=== PATIENT | female | born 1950 | race Caucasian/White ===

== ENCOUNTER → 2017-11-27 13:36 | Outpatient (CLI) | payer MEDICARE, OTHER, SELFPAY ==
--- NOTE | 2017-11-27 | DI.NM.S_ITS ---
PROCEDURE: NM HIDA WITH CCK PHARMACEUTICAL: 5.0 mCi Tc-99m mebrofenin IV; 1.2 mcg CCK IV. INDICATIONS: Right upper quadrant pain TECHNIQUE: Following intravenous administration of Tc-99m mebrofenin, sequential anterior abdominal images were obtained. To evaluate the contractile response of the gallbladder in response to Cholecystokinin (CCK), sincalide (0.02 ?g/kg) was administered by slow intravenous infusion approximately 60 minutes after the administration of the radiopharmaceutical. Sequential imaging was continued for 30 minutes after the start of CCK infusion. Gallbladder ejection fraction was calculated. COMPARISON: [facility], US, ABDOMEN COMPLETE, 11/02/2017, 14:48. [facility], CT, ANGIOGRAPHY ABDOMEN AND PELVIS, 11/02/2017, 11:08. FINDINGS: Biliary scan: There is normal tracer uptake and excretion by the liver. There is normal visualization of the intrahepatic ducts, common bile duct, and gallbladder. There is normal tracer transit into the duodenum. CCK stimulation: There is appropriate contractile response of the gallbladder to CCK infusion. The calculated gallbladder ejection fraction is 87%; normal values are above 35%. IMPRESSION: Normal hepatobiliary scan. The gallbladder ejection fraction is within normal limits. There is no cystic duct or common duct obstruction. Dictated by: Darnell Katz M.D. on 11/27/2017 at 15:04 Approved by: Darnell Katz M.D. on 11/27/2017 at 15:06
== END ==
PROVIDERS: Family Provider Nurse Practitioner Family; PCP Nurse Practitioner Family; Visit Provider Surgery
DX: R10.11 Right upper quadrant pain (principal)
CPT/HCPCS: 78227; A9537; J2805

== ENCOUNTER 2017-11-27 16:03 | Emergency (ER) | payer MEDICARE, OTHER, SELFPAY ==
[2017-11-27 16:18] VITALS: BP 148/78; PULSE 75; RESP 16; TEMP 36.9; O2SAT 100; BMI 22.1
--- NOTE | 2017-11-27 16:39 | DI.RAD.S_ITS ---
PROCEDURE: XR CHEST 1V INDICATIONS: shortness of breath TECHNIQUE: One view of the chest was acquired. COMPARISON: None. FINDINGS: Surgical changes and devices: None. Lungs and pleura: No pleural effusions or pneumothorax. Lungs are clear. Mediastinum: Mediastinal contours appear normal. Heart size is normal. Bones and chest wall: No suspicious bony lesions. Overlying soft tissues appear unremarkable. IMPRESSION: No acute cardiopulmonary process is evident. Dictated by: Darnell Katz M.D. on 11/27/2017 at 16:35 Approved by: Darnell Katz M.D. on 11/27/2017 at 16:36
[2017-11-27] MEDS: methylPREDNISolone 125 MG/2 ML VIAL IV (16:51)
[2017-11-27] MEDS: SODIUM CHLORIDE 0.9% 1,000 ML 150 ML IV (16:51)
[2017-11-27] MEDS: FAMOTIDINE 20 MG/50 ML PIGGYBACK 200 MG IV (16:51)
[2017-11-27] MEDS: diphenhydrAMINE 50 MG/ML VIAL 25 MG IV (16:52)
[2017-11-27 17:14] LABS: Add Manual Diff / Slide Review NO; Basophils Percent Auto 0.4 % (0-2); Eosinophils Percent Auto 0.3 % (2-4); Hematocrit 43.6 % (36-46); Mean Corpuscular HGB Conc 34.3 % (30-36); Mean Corpuscular Hemoglobin 30.3 PG (26-34); Mean Corpuscular Volume 88.4 fL (80-100); Monocytes Percent Auto 7.5 % (3-14); Neutrophils Absolute Auto 3000 /uL (3000-5900); Neutrophils Percent Auto 60.8 % (50-75); Platelet Count 242 X10^3/uL (150-400); Red Blood Cell Count 4.93 X10^6/uL (4.0-5.2); Red Cell Distribution Width 13.4 % (11.6-14.8)
[2017-11-27 17:16] LABS: BUN Creatinine Ratio 27.1 (6-22); Calcium 9.5 mg/dL (8.4-10.2); Estimated Glomerular Filt Rate > 60.0 mL/min (>60); Glucose 129 mg/dL (80-110); HEMOLYSIS 18 (0-50); Potassium 4.1 mmol/L (3.4-5.1); Sodium 142 mmol/L (137-145)
--- NOTE | 2017-11-27 17:55 | ED_ITS ---
HPI - SOB/Dyspnea General Chief Complaint: Shortness of Breath/Dyspnea Stated Complaint: WEAK,COLD,SOB, Time Seen by Provider: 11/27/17 16:08 Source: patient and family Mode of arrival: ambulatory Limitations: no limitations History of Present Illness Patient to the ED with the chief complaint of SOB, shaking, unease and nausea almost immediately after administration of CCK for HIDA. She had a similar reaction after IV contrast. She denies any swelling of tongue lips or throat. Her CCK was administered at about 230pm today and she arrived about 90 minutes later. The scan was completed. MD Complaint: shortness of breath Onset (ago): minute(s) Severity: moderate Consistency/Duration: constant Relieving factors: nothing Exacerbating factors: nothing Associated symptoms: nausea/vomiting Related Data Home oxygen amount: none Home Medications Medication Instructions Recorded Confirmed levothyroxine [Synthroid] 75 mcg PO QAM #0 07/27/17 acetaminophen 325 mg PO PRN PRN #0 11/02/17 diazepam PO PRN PRN #0 11/02/17 Previous Rx's Medication Instructions Recorded estradiol [Estrace] 1 gm VAGINAL SEE INSTRUCTIONS #30 10/27/17 gm prednisone 20 mg PO DAILY #5 tab 11/27/17 Allergies Allergy/AdvReac Type Severity Reaction Status Date / Time aspirin [ASPIRIN] Allergy Severe ANAPHALAXIS Unverified 11/02/17 12:41 Review of Systems Review of Systems All systems reviewed & are unremarkable except as noted in HPI and below Constitutional Reports chills, Denies fever(s), Denies lethargy and Denies weakness Eyes Denies change in vision, Denies eye discharge, Denies irritation and Denies loss of vision ENT Ears, Nose, Mouth, and Throat: Denies change in voice, Denies neck pain and Denies sore throat Cardiovascular Denies chest pain, Denies irregular heart rhythm, Denies lightheadedness, Denies palpitations, Reports dyspnea, Denies dyspnea on exertion and Denies orthopnea Respiratory Denies cough, Reports dyspnea, Denies dyspnea on exertion and Denies wheezing Gastrointestinal Gastrointestinal: Denies abdominal pain, Denies change in bowel habits, Denies diarrhea, Reports nausea and Reports vomiting Genitourinary Denies hematuria, Denies flank pain, Denies urinary incontinence and Denies urinary urgency Musculoskeletal Denies neck pain Integumentary/Breasts Denies pruritus, Denies erythema, Denies rash and Denies wounds Neurologic Denies confusion, Denies loss of vision and Denies weakness Psychiatric Reports anxiety, Denies confusion, Denies depression, Denies homicidal ideation and Denies suicidal ideation Endocrine Denies palpitations Hematologic/Lymphatic Denies easy bruising Allergic/Immunologic Denies wheezing PFSH Surgical History Status post hysterectomy with oophorectomy Social History Smoking Status: Never smoker Exam Narrative Exam Narrative: Pleasant 67-year-old female is visibly anxious, rapid shallow breathing with carpal pedal spasms Const General: cooperative and well developed Nutritional Appearance: well nourished Orientation: alert, awake, oriented x3 and not confused HENMT Head: normocephalic and atraumatic Ears: external ears normal and TM's normal bilaterally Nose: external nose normal and No nasal discharge Face and sinus: sinuses nontender, face symmetric, no sinus tenderness and No dry mucous membranes Mouth: oral mucosae normal and moist mucous membranes Teeth and gingiva: dentition normal Throat: tonsils normal and uvula midline Eyes General: appearance normal, both eyes and all related structures Eyelids: eyelids normal Conjunctivae: conjunctivae normal Sclera: sclerae normal Pupils: PERRL EOM: EOM intact bilaterally Neck Neck: normal visual inspection, trachea midline, No lymphadenopathy, No midline deformity and No JVD Lymphatic: No lymphedema Resp Effort & Inspection: abnormal respiratory pattern, no respiratory distress and no use of accessory muscles Auscultation: clear to auscultation bilaterally, no rales, no rhonchi and no wheezes Cardio Rate: regular rate Rhythm: regular rhythm Heart Sounds: no click, no gallops, no murmurs and no rubs Pulses: normal peripheral pulses GI Inspection: non-distended Palpation: soft, no hepatosplenomegaly, No guarding, No pulsatile mass and No tender Auscultation: normal bowel sounds Skin General: no rashes or lesions noted, No jaundice and No petechiae Neuro General: alert, awake and oriented x3 Cognition: normal cognition Speech: speech normal Gait: normal gait Psych Appearance: grossly normal Speech and Movement: speech and movement normal Mood: anxious mood Course Orders Ordered: Discontinued Medications Diphenhydramine HCl (Benadryl) 25 mg IV NOW ONE Stop: 11/27/17 16:39 Last Admin: 11/27/17 16:52 Dose: 25 mg Sodium Chloride (Normal Saline 0.9%) 1,000 mls @ 150 mls/hr IV CONT MALIKA Last Infusion: 11/27/17 18:05 Dose: 150 mls/hr Infusion: 11/27/17 18:02 Dose: 150 mls/hr Admin: 11/27/17 16:51 Dose: 150 mls/hr Famotidine (Pepcid) 20 mg in 50 mls @ 200 mls/hr IV NOW ONE Stop: 11/27/17 16:52 Last Infusion: 11/27/17 17:19 Dose: 200 mls/hr Admin: 11/27/17 16:51 Dose: 200 mls/hr Methylprednisolone (Solu-Medrol 125 Mg Vial) 125 mg IV NOW ONE Stop: 11/27/17 16:39 Last Admin: 11/27/17 16:51 Dose: 125 mg Ondansetron HCl (Zofran) 4 mg IV Q4HR PRN PRN Reason: Nausea And Vomiting Reevaluation(s) Reevaluation #1: patient completely asymptomatic and requesting discharge. Her administration of CCK was 3.5 hours ago Last Vital Signs Temp 98.7 F 11/27/17 18:06 Pulse 83 11/27/17 18:06 Resp 20 11/27/17 18:06 BP 156/78 H 11/27/17 18:06 Pulse Ox 98 11/27/17 18:06 MDM - SOB/Dyspnea Lab Data Result diagrams: 11/27/17 Unknown 11/27/17 Unknown Lab Results 11/27/17 11/27/17 Range/Units Unknown Unknown WBC 5.0 (4.5-11.0) X10^3/uL RBC 4.93 (4.0-5.2) X10^6/uL Hgb 15.0 (12.0-16.0) g/dL Hct 43.6 (36-46) % MCV 88.4 (80-100) fL MCH 30.3 (26-34) PG MCHC 34.3 (30-36) % RDW 13.4 (11.6-14.8) % Plt Count 242 (150-400) X10^3/uL Neut % (Auto) 60.8 (50-75) % Lymph % (Auto) 31.0 (25-40) % [place] % (Auto) 7.5 (3-14) % Eos % (Auto) 0.3 L (2-4) % Baso % (Auto) 0.4 (0-2) % Neut # (Auto) 3000 (7307-9535) /uL Sodium 142 (137-145) mmol/L Potassium 4.1 (3.4-5.1) mmol/L Chloride 103.0 (98-107) mmol/L Carbon Dioxide 26.0 (22-32) mmol/L BUN 19.0 H (7-17) mg/dL Creatinine 0.70 (0.52-1.04) mg/dL Estimated GFR > 60.0 (>60) mL/min BUN/Creatinine Ratio 27.1 H (6-22) Glucose 129 H (80-110) mg/dL Calcium 9.5 (8.4-10.2) mg/dL Discharge Plan Departure Patient Disposition: Home, Self-Care Clinical Impression: Allergic reaction caused by a drug Discharge Date/Time: 11/27/17 18:07 Interventions: ED Discharge Assessment Last Done: 11/27/17 18:06 Instructions: DI for Adverse Drug Reaction -- Allergic Activity Restrictions/Additional Instructions: Today symptoms are more likely an adverse effect of the CCK as opposed to a true allergic reaction Please contact her corrugated sheet material sheeter and inform them she was in the emergency department. It is my recommendation that you see them sooner than January as they are surely the expert regarding your symptoms Please return to the emergency department for any worsening symptoms Prescriptions: New prednisone 20 mg tablet 20 mg PO DAILY Qty: 5 RF: 0 No Action levothyroxine [Synthroid] 75 MCG tablet 75 mcg PO QAM Qty: 0 RF: 0 estradiol [Estrace] 0.01 % cream 1 gm Vaginal SEE INSTRUCTIONS Qty: 30 RF: 3 acetaminophen 325 MG tablet 325 mg PO PRN PRNQty: 0 RF: 0 diazepam 5 mg Tablet PO PRN PRNQty: 0 RF: 0
[2017-11-27 18:06] VITALS: BP 156/78; PULSE 83; RESP 20; TEMP 37.1; O2SAT 98
== END 2017-11-27 18:07 | disposition home or self-care (01) ==
PROVIDERS: Emergency Provider Emergency Medicine; Family Provider Nurse Practitioner Family; PCP Nurse Practitioner Family
DX: T88.7XXA Unspecified adverse effect of drug or medicament, initial encounter (principal)
CPT/HCPCS: 36591; 71045; 78227; 80048; 85025; 93005; 96374; 96375; 99283; 99285; A9537; J1200; J2805; J2930

== ENCOUNTER 2018-03-01 09:11 | Day surgery (SDC) | payer MEDICARE, OTHER, SELFPAY ==
[2018-02-16 16:06] VITALS: BMI 22.8
[2018-03-01] VITALS (15 sets, daily range): BP systolic 116–163; BP diastolic 57–81; PULSE 67–77; RESP 8–18; TEMP 36.6–37.2; O2SAT 94–98; BMI 21.3
--- NOTE | 2018-03-01 07:36 | P.HPOB_ITS ---
History of Present Illness Narrative: Lena Panda is a 67 year old female 3 para 2 who presents for an anterior and posterior repair [facility] Medical History Aneurysmal dilatation (Chronic 11/02/17) Bladder prolapse (Chronic) Frequent UTI (Chronic) Hemangioma of liver (Chronic) Hypertension (Chronic) Hypothyroidism (Chronic) Incomplete right bundle branch block (RBBB) (Chronic) Kidney stones (Chronic) Liver cyst (Chronic) Palpitations (Chronic) Vaginal atrophy (Chronic) Surgical History Status post hysterectomy with oophorectomy (Resolved) Social History Smoking Status: Never smoker Meds Home Medications Medication Instructions Recorded Confirmed Type estradiol [Estrace] 1 gm VAGINAL SEE INSTRUCTIONS #30 10/27/17 02/23/18 Rx gm acetaminophen 325 mg PO PRN PRN #0 11/02/17 02/23/18 History diazepam PO PRN PRN #0 11/02/17 02/23/18 History levothyroxine 75 mcg tablet 50 mcg PO QAM #0 tab 01/06/18 02/23/18 History nitrofurantoin macrocrystal 50 mg 50 mg PO BEDTIME 02/23/18 02/23/18 History capsule Allergies Allergy/AdvReac Type Severity Reaction Status Date / Time aspirin [ASPIRIN] Allergy Severe ANAPHALAXIS Unverified 02/23/18 11:25 Exam Vital Signs (past 8 hours): HEENT: No thyromegaly, no anterior cervical or supraclavicular lymphadenopathy. Lungs:Clear to auscultation bilaterally, no wheezes. Cardiovascular: Regular rate and rhythm, no murmurs, rubs, or gallops. Abdomen: No scars. No hepatosplenomegaly. No masses palpable. External genitalia: Normal Vagina: Third-degree cystocele, third-degree rectocele Cervix: Absent Bimanual exam: No masses or tenderness Rectal: No masses. Assessment & Plan (1) Pelvic relaxation: Current visit: No Status: Acute Plan: Assessment/Plan Narrative: Assessment: 67-year-old 3 para 2 with a cystocele and rectocele that are symptomatic Failed pessary Plan: Anterior and posterior repair The risks, benefits, and alternatives to the procedure were explained to the patient. The risks including bleeding, infection, injury to the urethra, bladder, ureters, or rectum. A full capital P AR-Q was held and consent form was signed.
--- NOTE | 2018-03-01 07:36 | PM.PREOP ---
Pre-operative Note Interval Note Pre-op Check: Yes History & Physical Reviewed by Physician Changes: No
[2018-03-01] MEDS: LACTATED RINGERS 1,000 ML 100 ML IV ×3 (09:36→22:56)
--- NOTE | 2018-03-01 09:42 | SUR.PREOP ---
pt states has chronic numbness in left ankle, anesthesia aware. pt also on prophylactic dose of antibiotic for hx of uti's, Dr. Wilcox aware.
[2018-03-01] MEDS: CEFAZOLIN 2 GM/100 ML FROZ.PIGGY IV (10:00)
--- NOTE | 2018-03-01 10:31 | SUR.OPER ---
Lithotomy on padded OR bed, head on pillow, arms secured on padded arm boards at <90 degrees abduction. Legs secured in padded yellow fins stirrups.
[2018-03-01] MEDS: BUPIVACAINE 0.25% W/ EPI VIAL 50 ML INJ (10:37)
--- NOTE | 2018-03-01 10:42 | SUR.OPER ---
GLASSES IN LABELED BAG TO PACU WITH PATIENT
--- NOTE | 2018-03-01 12:16 | PM.GYNOP.1 ---
Operative Date/Time/Diagnoses Date of procedure: 03/01/18 Time of procedure: 12:16 Pre-op diagnosis: Third-degree cystocele Third-degree rectocele Symptomatic cystocele and rectocele Post-op diagnosis: same Procedure: Procedures Operation Date: 03/01/18 09:45 Actual Procedures Side Surgeon p Colporrhaphy Anterior/Posterior Colporrhaphy Not Applicable Preeti Wilcox MD Anterior and posterior repair Indications: Symptomatic cystocele and rectocele Surgeon: Preeti Wilcox Associate Vice President: Alexander De León Anesthesia Type: General Operative Notes Findings: Third-degree cystocele Third-degree rectus Closure Type: primary Specimen(s): none Applied: catheter and other (Vaginal packing) Estimated blood loss (mL): 50 Procedure in detail: The patient was taken to the operating room where she was placed in the dorsal supine position. After adequate general endotracheal anesthesia was achieved, she was placed in the dorsal lithotomy position, and prepped and draped in the usual sterile fashion. A time-out was performed. A weighted speculum was placed into the vagina. 2 Allis clamps were placed at the apex of the cystocele. 6 mL of half percent Marcaine with epinephrine were injected and an incision was made with a #10 blade between the 2 Allis clamps. Wide Allis clamps were placed on the midline of the cystocele approximately 5. The mucosa was undermined using the Metzenbaum scissors and the mucosa incised in the midline moving the wide Allis clamps to the edges of the mucosa. The mucosa was dissected off the underlying fascia using an open moistened Ray-Magda and a #10 blade. The fascia was reapproximated with 0 Vicryl with a series of horizontal mattress sutures. The excess vaginal mucosa was excised. The mucosa was closed using simple interrupted sutures with 2-0 Vicryl including the underlying fascia to close the space. The weighted speculum was removed from the vagina. Allis clamps were placed at the mucocutaneous junction at the introitus. 6 mL of half percent Marcaine with epinephrine were injected. An incision was made with a #10 blade between the 2 Allis clamps, and a triangular piece of skin and underlying subcutaneous tissue was removed. Allis clamps were placed in the midline of the rectocele. 10 mL of half percent Marcaine with epinephrine were injected submucosally. The mucosa was undermined using the Metzenbaum scissors and the mucosa incised in the midline, moving the wide Allis clamps to the mucosal edges. The underlying fascia was dissected off of the mucosa using an open moistened Ray-Magda and a #10 blade. The fascia was reapproximated using 0 Vicryl with a series of horizontal mattress sutures. The excess vaginal mucosa was excised. The mucosa was closed using a series of simple interrupted sutures with 2-0 Vicryl including the underlying fascia to close the space. On the perineum 0 Vicryl was used to reapproximate the levator muscle. The subcutaneous layer was closed with 2-0 Vicryl. The skin was closed with 2-0 chromic in a subcuticular fashion. Hemostasis was achieved. A Betadine moistened vaginal pack was placed into the vagina. A rectal exam was done and there were no sutures palpable in the rectum. The urine was clear. Sponge, lap, and instrument counts were correct x-2. The patient tolerated the procedure well, was taken to PACU in stable condition. Complications: none Post-operative Condition: stable Disposition: PACU Plan for aftercare: Acute care
--- NOTE | 2018-03-01 12:44 | SUR.PHASEI ---
late entry: stable, uneventful pacu stay...report called to surinder, report to tomas in room 219, pt left in stable condition.
[2018-03-01] MEDS: ACETAMINOPHEN 325 MG TABLET 650 MG PO (19:21)
[2018-03-01] MEDS: DOCUSATE 250 MG CAPSULE PO (19:21)
[2018-03-02 00:06] VITALS: BP 120/68; PULSE 61; RESP 18; TEMP 36.9; O2SAT 96
[2018-03-02 05:58] LABS: Add Manual Diff / Slide Review NO; Basophils Percent Auto 0.2 % (0-2); Eosinophils Percent Auto 0.4 % (2-4); Hematocrit 38.4 % (36-46); Hemoglobin 13.2 g/dL (12.0-16.0); Lymphocytes Percent Auto 22.1 % (25-40); Mean Corpuscular HGB Conc 34.4 % (30-36); Mean Corpuscular Hemoglobin 30.9 PG (26-34); Mean Corpuscular Volume 89.8 fL (80-100); Monocytes Percent Auto 9.5 % (3-14); Neutrophils Absolute Auto 4500 /uL (3000-5900); Neutrophils Percent Auto 67.8 % (50-75); Platelet Count 177 X10^3/uL (150-400); Red Blood Cell Count 4.28 X10^6/uL (4.0-5.2); Red Cell Distribution Width 12.8 % (11.6-14.8); White Blood Cell Count 6.7 X10^3/uL (4.5-11.0)
[2018-03-02 06:17] VITALS: BP 135/72; PULSE 64; RESP 18; TEMP 36.6; O2SAT 100
--- NOTE | 2018-03-02 06:40 | PC.NURSE ---
Addendum entered by Wendy Madrid R.N. 03/02/18 06:44: When medicating pt with AM Synthroid, pt declined because she reports that she took her Synthroid that she brought from home. Pt states that she has no other home meds with her. 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 Peripad and packing in place, no drainage noted. Pts only complaint is that she feels a little gassy. Cassi Lovelace at 0620.
[2018-03-02] MEDS: DOCUSATE 250 MG CAPSULE PO (09:12)
[2018-03-02 09:36] VITALS: BP 131/77; PULSE 67; RESP 16; TEMP 37; O2SAT 98
[2018-03-02 13:12] VITALS: BP 112/66; PULSE 75; RESP 16; TEMP 36.8; O2SAT 98
--- NOTE | 2018-03-02 13:56 | CM.DANOTE ---
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 Yes History Provided By Patient Medical Record Has Patient been admitted in last 30 No days? Prior Living Arrangements House Household Members spouse Type of transporation used prior to Drives own vehicle admit Independent with ADL's Yes Is patient alert and oriented? Yes Barriers to Discharge No Discharge Plan Home Referrals Initiated None needed Whiteboard Updated in Patient Room with Yes name and ext. # of Slate Roofer Helper Review Status In Process Next Review Type Continued Stay Review
--- NOTE | 2018-03-02 14:04 | PC.NURSE ---
Pt A&Ox3. Reporting some mild discomfort to lower abd and feelings of gassy. Ye d/c'd w/ PVR ~78ml & 30ml. D/C orders obtained, reviewed discharge instructions and pt responsible for making f/u appt.
--- NOTE | 2018-03-02 17:19 | PM.DS.1 ---
History of Present Illness Date Patient Seen: 03/02/18 Time Patient Seen: 13:30 Chief complaint: *OPB* anterior posterior repair [id number] Narrative: Patient is a 67-year-old postop day # 1 status post anterior and posterior repair. She voided without the catheter 550 cc and had a 70 cc residual. She has had 2 bowel movements. Pain is controlled with Tylenol only. She has ambulated. Discharge Providers Primary care physician: ELVIN Vu Discharge provider: Preeti Wilcox MD Summary Discharge Diagnosis: Symptomatic cystocele and rectocele Status post anterior and posterior repair Hospital Course: Patient presented on 03/01/2018 for a scheduled anterior and posterior repair. She underwent this procedure without complication. On postop day # 1, the catheter was removed and she was able to void without difficulty. Her postvoid residual was minimal. She has tolerated a diet, ambulated, and managed pain with Tylenol only. Her vaginal packing was removed this morning. Status at Discharge Functional status at discharge: independent ambulation Time Spent with Patient Less than 30 minutes Exam Vital Signs (past 8 hours): - 03/02/18 09:36 03/02/18 13:12 Temperature 98.6 F 98.2 F Pulse Rate 67 75 Respiratory Rate 16 16 Blood Pressure 131/77 H 112/66 Pulse Oximetry 98 98 Oxygen Delivery Method Room Air Oxygen Flow Rate 0 Narrative Exam Narrative: Generally: Patient is sitting up in bed, no acute distress Lungs: Clear to auscultation bilaterally Cardiovascular: Regular rate and rhythm Perineum: Dry Extremities: Negative Homans Objective Labs Result Diagrams: 03/02/18 05:37 Labs: Laboratory Results - last 24 hr 03/02/18 05:37 WBC 6.7 RBC 4.28 Hgb 13.2 Hct 38.4 MCV 89.8 MCH 30.9 MCHC 34.4 RDW 12.8 Plt Count 177 Neut % (Auto) 67.8 Lymph % (Auto) 22.1 L [place] % (Auto) 9.5 Eos % (Auto) 0.4 L Baso % (Auto) 0.2 Neut # (Auto) 4500 Discharge Plan Discharge Plan Patient Disposition: Home, Self-Care Discharge Med Rec/Prescriptions Prescriptions: No Action estradiol [Estrace] 0.01 % cream 1 gm Vaginal SEE INSTRUCTIONS Qty: 30 RF: 3 acetaminophen 325 MG tablet 325 mg PO PRN PRN (Reason: Pain (Scale Score 1-3)) Qty: 0 RF: 0 diazepam 5 mg Tablet 2.5 mg PO PRN PRN (Reason: Vertigo) Qty: 0 RF: 0 levothyroxine [Synthroid] 75 mcg tablet 50 mcg PO QAM Qty: 0 RF: 0 nitrofurantoin macrocrystal 50 mg capsule 50 mg PO BEDTIME RF: 0 Follow up/Referrals: Preeti Wilcox MD [Physician] - 2 Weeks () Discharge Orders: Discharge (Order); Ordered 03/02/18 Ordered By: Preeti Wilcox Provider Discharge Instructions Diet: Diet as Tolerated Activity: No heavy lifting Skin/Wound/Dressing Care Report to your healthcare provider any signs of infection, such as:: chills, fever, increased pain and unusual drainage Visit Report/Discharge Packet Instructions: Cystocele and Rectocele Repair, DI for Cystocele and Rectocele Repair Stand Alone Forms: Surgery Discharge Discharge Data Primary Care Provider: Юлия Dallas Attending Provider: Preeti Wilcox Discharges patient from system. Discharge Date/Time: 03/02/18 14:45
== END 2018-03-02 14:45 | disposition home or self-care (01) ==
LOC: OR 09:12 → AC 12:10
PROVIDERS: Family Provider Nurse Practitioner Family; PCP Nurse Practitioner Family; Visit Provider Obstetrics & Gynecology
PROC: (CPT 57260; principal; 2018-03-01 09:45)
DX: N81.10 Cystocele, unspecified (principal); N81.6 Rectocele
CPT/HCPCS: 57260; 36415; 85025; J0690; J1100; J2250; J2405; J2704; J3010

== ENCOUNTER → 2018-03-26 15:28 | Outpatient (CLI) | payer MEDICARE, OTHER, SELFPAY ==
[2018-03-01 12:18] VITALS: BMI 21.3
== END ==
PROVIDERS: Family Provider Nurse Practitioner Family; PCP Nurse Practitioner Family; Visit Provider Specialist
DX: N39.0 Urinary tract infection, site not specified (principal)
CPT/HCPCS: 87077; 87086; 87186

== ENCOUNTER → 2018-04-20 10:47 | Outpatient (CLI) | payer MEDICARE, OTHER, SELFPAY ==
[2018-03-01 12:18] VITALS: BMI 21.3
--- NOTE | 2018-04-20 | DI.US.S_ITS ---
PROCEDURE: US ABDOMEN COMPLETE INDICATIONS: RIGHT UPPER QUADRANT ABDOMINAL PAIN TECHNIQUE: Real-time scanning was performed of the abdominal and retroperitoneal organs, with image documentation. COMPARISON: [facility], CT, ANGIOGRAPHY ABDOMEN AND PELVIS, 11/02/2017, 11:08. FINDINGS: Liver: Liver is normal in size. There is a 3.3 x 4.4 x 4.1 cm simple cyst in the superior right hepatic lobe. A 1.0 x 0.9 x 1.0 cm echogenic mass in the hepatic lobe is likely hepatic hemangioma. Gallbladder: The No gallstones. No gallbladder wall thickening, pericholecystic fluid or sonographic Martin's sign. Biliary ducts: Intrahepatic bile ducts are non-dilated. Extrahepatic bile duct caliber measures 3 mm. Normal is 6-7 mm or less in diameter, or 10 mm or less post-cholecystectomy. Pancreas: Visualized portions of the pancreas are sonographically normal. Spleen: Spleen is normal in size and homogeneous in echotexture. Kidneys: Kidneys are normal in size and echotexture. Right kidney measures 13.4 cm long; left kidney measures 12.3 cm long. There is a 1.5 cm cyst in the anterior cortex of mid the right kidney. No hydronephrosis. Echogenic foci in kidneys bilaterally are compatible with small nonobstructive renal stones. No solid masses. Aorta: Visualized aorta is normal in caliber at less than 3 cm. Iliacs: Proximal common iliac arteries are normal in caliber at less than 2.5 cm. IVC: Intrahepatic inferior vena cava is patent. Miscellaneous: No free abdominal fluid. IMPRESSION: 1. Two simple hepatic cysts are present. 2. A 1.0 x 0.9 x 1.0 cm echogenic focus in the right hepatic lobe, most likely hemangioma. 3. Nonobstructive renal calculi bilaterally. 4. A 1.5 cm cyst in the mid right kidney. Dictated by: Beverley Lay M.D. on 04/20/2018 at 17:15 Approved by: Beverley Lay M.D. on 04/20/2018 at 17:21
== END ==
PROVIDERS: PCP Family Medicine; Visit Provider Internal Medicine Gastroenterology
DX: K76.89 Other specified diseases of liver (principal); N28.1 Cyst of kidney, acquired; N20.0 Calculus of kidney; R10.11 Right upper quadrant pain
CPT/HCPCS: 76700

== ENCOUNTER → 2018-04-20 13:08 | Outpatient (CLI) | payer MEDICARE, OTHER, SELFPAY ==
[2018-03-01 12:18] VITALS: BMI 21.3
== END ==
PROVIDERS: PCP Family Medicine; Visit Provider Obstetrics & Gynecology
DX: R30.0 Dysuria (principal)
CPT/HCPCS: 87077; 87086; 87186

== ENCOUNTER → 2018-07-23 14:08 | Outpatient (CLI) | payer MEDICARE, OTHER, SELFPAY ==
[2018-03-01 12:18] VITALS: BMI 21.3
--- NOTE | 2018-07-23 | DI.CT.S_ITS ---
PROCEDURE: CT KIDNEY URETER BLADDER (KUB) INDICATIONS: CALCULUS OF KIDNEY TECHNIQUE: Noncontrast 5 mm thick sections acquired from the diaphragms to the symphysis. 5 mm thick coronal and sagittal reformats were then performed. For radiation dose reduction, the following was used: automated exposure control, adjustment of mA and/or kV according to patient size. COMPARISON: [facility], CT, ANGIOGRAPHY ABDOMEN AND PELVIS, 11/02/2017, 11:08. FINDINGS: Image quality: Excellent. Lung bases: Pulmonary scar is present at the right lung base. The lung bases are otherwise clear. No pleural effusion or pneumothorax. Heart size is normal. Urinary system: Both kidneys are normal size. There are multiple subcentimeter nonobstructing calculi within the bilateral renal collecting systems. There is a nonobstructing 1.0 cm in diameter calculus within the right renal pelvis. This measures approximately 600 Hounsfield units in density. This was not present on the prior CT dated 11/02/17 and was likely located more peripherally within the right renal collecting system on the prior study. Other solid organs: Liver is normal in size. There are multiple low density circumscribed cystic lesions within the liver suggesting the presence of multiple hepatic cysts. Gallbladder is unremarkable. Pancreas is normal in contours. Spleen is normal in size. No adrenal nodules. Peritoneum and bowel: Unenhanced bowel loops demonstrate normal wall thickness and caliber. The appendix is thin walled and gas filled. No free fluid or air. Nodes and vessels: No retroperitoneal or mesenteric adenopathy by size criteria. Aorta and inferior vena cava are normal in caliber. Abdominal wall: No ventral hernias. Pelvis: No free pelvic fluid. No inguinal hernias or adenopathy. Bones: No suspicious bony lesions. No vertebral body compression fractures. IMPRESSION: 1. Nonobstructing bilateral nephrolithiasis. A nonobstructing 10 mm diameter stone is present within the right renal pelvis which likely represents a cystine or struvite stone based on radiodensity. This has likely migrated from more peripherally within the kidney based on the findings of the comparison CT dated 11/02/17. 2. No hydronephrosis, hydroureter, or ureterolithiasis. 3. No acute intra-abdominal findings. Normal appendix. Dictated by: Kiarra Recio M.D. on 07/23/2018 at 15:16 Approved by: Kiarra Recio M.D. on 07/23/2018 at 15:26
== END ==
PROVIDERS: PCP Family Medicine; Visit Provider Urology
DX: N20.0 Calculus of kidney (principal)
CPT/HCPCS: 74176

== ENCOUNTER → 2018-09-10 11:44 | Outpatient (CLI) | payer MEDICARE, OTHER, SELFPAY ==
[2018-03-01 12:18] VITALS: BMI 21.3
--- NOTE | 2018-09-10 | DI.RAD.S_ITS ---
PROCEDURE: XR KUB INDICATIONS: CALCULUS OF KIDNEY TECHNIQUE: One view of the abdomen acquired. COMPARISON: [facility], CT, CT KIDNEY URETER BLADDER (KUB), 07/23/2018, 14:07. FINDINGS: Surgical changes and devices: None. Bowel: Bowel gas pattern is normal. Soft tissues: There is a persistent calcification overlying what is expected region of the right renal pelvis, measuring 11 mm, corresponding to calcification on CT of 07/23/18. In addition, multiple punctate foci are noted overlying both renal shadows. Visualized solid organ contours appear normal in size. Bones: No suspicious bony lesions. IMPRESSION: 1. Bilateral renal calcifications including an 11 mm calcification likely overlying the right renal pelvis appearing unchanged from prior CT exam. Dictated by: Ariana Olivares M.D. on 09/10/2018 at 15:12 Approved by: Ariana Olivares M.D. on 09/10/2018 at 15:16
== END ==
PROVIDERS: Family Provider Family Medicine; PCP Family Medicine; Visit Provider Specialist
DX: N20.0 Calculus of kidney (principal)
CPT/HCPCS: 74018

== ENCOUNTER → 2018-11-30 14:06 | Outpatient (CLI) | payer OTHER, MEDICARE, SELFPAY ==
[2018-03-01 12:18] VITALS: BMI 21.3
--- NOTE | 2018-11-30 | DI.RAD.S_ITS ---
PROCEDURE: XR KUB INDICATIONS: KIDNEY STONES TECHNIQUE: One view of the abdomen acquired. COMPARISON: [facility], CT, CT KIDNEY URETER BLADDER (KUB), 07/23/2018, 14:07. [facility], CR, XR KUB, 09/10/2018, 11:59. FINDINGS: Surgical changes and devices: None. Bowel: Bowel gas pattern is normal. Soft tissues: Multiple scattered sub-4 mm punctate calcifications project in the region of the kidneys bilaterally. Bilateral pelvic calcifications presumably phleboliths Bones: Levoscoliosis IMPRESSION: Bilateral sub-4 mm nephrolithiasis as before. Dictated by: Robert Collins M.D. on 11/30/2018 at 15:00 Approved by: Robert Collins M.D. on 11/30/2018 at 15:03
== END ==
PROVIDERS: Family Provider Family Medicine; PCP Family Medicine; Visit Provider Specialist
DX: N20.0 Calculus of kidney (principal)
CPT/HCPCS: 74018

== ENCOUNTER → 2019-02-17 10:41 | Outpatient (CLI) | payer MEDICARE, OTHER, SELFPAY ==
[2018-03-01 12:18] VITALS: BMI 21.3
--- NOTE | 2019-02-17 | DI.RAD.S_ITS ---
PROCEDURE: XR KUB INDICATIONS: KIDNEY STONES TECHNIQUE: One view of the abdomen acquired. COMPARISON: [facility], CT, CT KIDNEY URETER BLADDER (KUB), 07/23/2018, 14:07. [facility], CR, XR KUB, 11/30/2018, 14:20. [facility], CR, XR KUB, 09/10/2018, 11:59. FINDINGS: Surgical changes and devices: None. Bowel: Bowel gas pattern is normal. Soft tissues: No new suspicious abdominal calcifications, and within the central renal collecting system of the right kidney area scattered punctate calculi can be seen. Overlying bowel gas on the left reduces quality of visualization, but the prior CT KUB had shown a lesser degree of collecting system punctate calculi similar to that seen on the right on prior scanning from 07/23/18. Visualized solid organ contours appear normal in size. Bones: No suspicious bony lesions. IMPRESSION: Punctate right-sided renal collecting system calculi are easy her to visualize than those on the left with reference to the prior CT scanning from 07/23/18. This is predominantly due to patient rotation, convex leftward scoliosis, and overlying bowel gas partially obscuring visualization of the left-sided renal region. Dictated by: Ludwig Coffey M.D. on 02/17/2019 at 13:25 Approved by: Ludwig Coffey M.D. on 02/17/2019 at 13:28
== END ==
PROVIDERS: PCP Family Medicine; Visit Provider Specialist
DX: N20.0 Calculus of kidney (principal)
CPT/HCPCS: 74018

== ENCOUNTER → 2019-06-29 12:13 | Outpatient (CLI) | payer MEDICARE, OTHER, SELFPAY ==
[2018-03-01 12:18] VITALS: BMI 21.3
--- NOTE | 2019-06-29 | DI.MRI.S_ITS ---
PROCEDURE: MR STROKE Pre- and post-contrast brain MRI, non-contrast brain MR angiogram, pre- and postcontrast neck MR angiogram INDICATIONS: Disorientation, unspecified TECHNIQUE: Brain: Noncontrast axial T1 spin echo, axial T2 fast spin echo, sagittal and axial FLAIR, coronal T2 fast spin echo, axial gradient echo, axial diffusion and ADC through the brain. After the administration of contrast, axial 3D VIBE of the cranial vasculature and brain. Brain MRA: Non-contrast 3-D time of flight MR angiogram, with multiple rnkvnll-vgytxyzsx-betcfjsubz (MIP) reformats performed. Neck MRA: Axial and sagittal TruFISP through the neck. Coronal dynamic MR angiogram during administration of contrast in the arterial and venous phases, with 3-dimenstional iuucgnq-ydslackco-wlltxcbund (MIP) reformats constructed from subtraction images. COMPARISON: None. FINDINGS: Image quality: Excellent. BRAIN: CSF spaces: Ventricles are normal in size and shape. Basal cisterns are patent. No extra-axial fluid collections. Brain: No intracranial bleeds or mass effects. There is mild, diffuse cerebral volume loss. There are mild periventricular and subcortical white matter chronic microvascular ischemic changes. Smith-white matter interface is normal. Diffusion weighted images show no acute ischemic insults. Brainstem appears normal. Normal intravascular flow voids are present. No GRE weighted abnormalities identified in the brain parenchyma. No abnormal intracranial enhancement. Dural sinuses demonstrate normal postcontrast enhancement. Skull and face: Calvarial marrow signal is normal. Orbits appear normal. Sinuses: Sinuses and mastoids are clear. BRAIN MR ANGIOGRAM: Anterior circulation: Intracranial internal carotid arteries are normal in size and enhancement. The flow within the paired anterior cerebral arteries is normal and symmetric. The flow within the middle cerebral arteries is normal and symmetric. The anterior communicating artery is seen. No stenoses, occlusions, or aneurysms. Posterior circulation: The visualized portions of the vertebral arteries demonstrate normal caliber, and join to form a normal appearing basilar artery. The flow within the posterior cerebral arteries is normal and symmetric. No stenoses, occlusions, or aneurysms. NECK MR ANGIOGRAM: Carotids: Great vessels demonstrate a conventional anatomy as they arise from the aortic arch. The origins of the common carotid arteries appear patent. The calibers and courses of both common carotid arteries are normal. The bifurcation regions appear normal bilaterally. The internal carotid arteries demonstrate normal course and caliber. Posterior circulation: The origins of the vertebral arteries appear patent. More superior portions of both vertebral arteries demonstrate normal course and caliber, and join to form a normal appearing basilar artery. Miscellaneous: Subclavian arteries appear patent. Pre-contrast images through the neck show no soft tissue abnormalities. IMPRESSION: BRAIN MRI: 1. No acute intracranial disease process. 2. No areas of acute or chronic infarction. 3. No abnormal intracranial mass or suspicious postcontrast enhancement. 4. Mild, diffuse cerebral volume loss. 5. Mild periventricular and subcortical white matter chronic microvascular ischemic changes. BRAIN MR ANGIOGRAM: Normal examination. NECK MR ANGIOGRAM: Normal examination. Dictated by: Camilla Whitlock MD, PhD on 06/29/2019 at 14:58 Approved by: Camilla Whitlock MD, PhD on 06/29/2019 at 15:04
== END ==
PROVIDERS: PCP Family Medicine; Visit Provider Internal Medicine Critical Care Medicine
DX: R41.0 Disorientation, unspecified (principal); I10 Essential (primary) hypertension
CPT/HCPCS: 70548; 70553; A9579

== ENCOUNTER → 2019-08-05 14:09 | Outpatient (CLI) | payer MEDICARE, OTHER, SELFPAY ==
[2018-03-01 12:18] VITALS: BMI 21.3
== END ==
PROVIDERS: PCP Family Medicine; Visit Provider Internal Medicine Endocrinology, Diabetes & Metabolism
DX: M81.0 Age-related osteoporosis without current pathological fracture (principal); Z78.0 Asymptomatic menopausal state; E07.9 Disorder of thyroid, unspecified; E21.3 Hyperparathyroidism, unspecified; R82.994 Hypercalciuria; Z90.722 Acquired absence of ovaries, bilateral; Z82.62 Family history of osteoporosis
CPT/HCPCS: 77080

== ENCOUNTER → 2021-01-17 15:09 | Outpatient (CLI) | payer MEDICARE, OTHER, SELFPAY ==
[2018-03-01 12:18] VITALS: BMI 21.3
--- NOTE | 2021-01-17 | DI.MRI.S_ITS ---
PROCEDURE: MR LUMBAR SPINE WO CON INDICATIONS: Low back pain TECHNIQUE: Noncontrast sagittal T1 spin echo and T2 fast echo, sagittal STIR, axial T1 and T2 fast spin echo through the lumbar spine. In cases with scoliosis, additional coronal T2 fast spin echo may be performed. COMPARISON: None. FINDINGS: Image quality: Excellent. Alignment and Curvature: There is normal bony alignment. Bone Marrow: Marrow is of normal overall signal. No acute vertebral body compression fractures. Spinal Cord: Conus medullaris terminates at the L1 level. Visualized cord demonstrates normal signal and size. Paraspinous Soft Tissues: No paravertebral masses. T12-L1: Normal appearance. L1-L2: Normal appearance. L2-L3: Normal appearance. L3-L4: Mild disc height loss and circumferential disc bulge combines with hypertrophic facet joints to result in mild central and moderate left foraminal stenosis. Mild right foraminal stenosis present. L4-L5: Mild disc space narrowing and circumferential disc bulge present. There is a high-intensity zone in the posterior annulus reflecting annular fissure or tear. Mild hypertrophic facet joints present. There is mild central stenosis present with effacement of the left lateral recess. Mild left and no right foraminal stenosis present. L5-S1: Normal appearance. IMPRESSION: Multilevel degenerative disc disease and arthropathy resulting in varying degrees of central and foraminal stenosis at L3-4 and L4-5 including moderate left foraminal stenosis at L3-4 Dictated by: Ryan Alas M.D. on 01/17/2021 at 17:08 Approved by: Ryan Alas M.D. on 01/17/2021 at 17:17
--- NOTE | 2021-01-17 15:11 | DI.US.S_ITS ---
PROCEDURE: US THYROID INDICATIONS: Evaluation of thyroid nodule TECHNIQUE: Real-time scanning was performed of the thyroid gland, with image documentation. COMPARISON: [facility], US, THYROID, 09/11/2017, 14:46. FINDINGS: Right: Thyroid lobe measures 4.7 x 1.0 x 1.1 cm, and is homogeneous in echotexture. Left: Thyroid lobe measures 3.9 x 1.0 x 1.0 cm, and is homogenous in echotexture. Isthmus: 2 mm thick. Nodule number: 1 Location: Left thyroid Size: 0.6 x 0.3 x 0.4 cm. Composition: Solid Echogenicity: Isoechoic Shape: wider than tall. Margins: Smooth Echogenic foci: None Total points: 3 ACR TI-RADS category: 3 IMPRESSION: 1. No evidence of malignancy. Dictated by: Ever Bustos M.D. on 01/17/2021 at 16:12 Approved by: Ever Bustos M.D. on 01/17/2021 at 16:14
== END ==
PROVIDERS: PCP Family Medicine; Referring Provider Family Medicine; Visit Provider Family Medicine
DX: M54.5 Low back pain (principal); E04.1 Nontoxic single thyroid nodule; M51.36 Other intervertebral disc degeneration, lumbar region; M47.816 Spondylosis without myelopathy or radiculopathy, lumbar region; M48.061 Spinal stenosis, lumbar region without neurogenic claudication
CPT/HCPCS: 72148; 76536

== ENCOUNTER → 2021-01-22 10:05 | Outpatient (CLI) | payer MEDICARE, OTHER, SELFPAY ==
[2018-03-01 12:18] VITALS: BMI 21.3
[2021-01-22 19:44] LABS: Alanine Aminotransferase 33 IU/L (<35); Albumin 4.1 g/dL (3.5-5.0); Albumin Globulin Ratio 1.6 (1.0-2.8); Alkaline Phosphatase 75 U/L (38-126); Aspartate Aminotransferase 39 IU/L (14-36); BUN Creatinine Ratio 21.9 (6-22); Blood Urea Nitrogen 14 mg/dL (7-17); Calcium 9.3 mg/dL (8.4-10.2); Carbon Dioxide 32 mmol/L (22-32); Chloride 101 mmol/L (98-107); Estimated Glomerular Filt Rate > 60.0 mL/min (>60); Globulin 2.6 g/dL (1.7-4.1); Glucose 98 mg/dL (80-110); HEMOLYSIS < 15 (0-50); Potassium 4.6 mmol/L (3.4-5.1); Sodium 137 mmol/L (137-145); Total Protein 6.7 g/dL (6.3-8.2)
[2021-01-24 07:46] LABS: Parathyroid Hormone Int 44 pg/mL (15-65)
== END ==
PROVIDERS: PCP Family Medicine; Visit Provider Family Medicine
DX: E03.9 Hypothyroidism, unspecified (principal); R10.9 Unspecified abdominal pain; E34.9 Endocrine disorder, unspecified; I10 Essential (primary) hypertension
CPT/HCPCS: 80053; 83970; 84443; 87086

== ENCOUNTER → 2021-02-13 09:53 | Outpatient (CLI) | payer MEDICARE, OTHER, SELFPAY ==
[2018-03-01 12:18] VITALS: BMI 21.3
[2021-02-13 19:56] LABS: Vitamin D 25 Hydroxy (D3) 27.6 ng/mL (30.0-100.0)
== END ==
PROVIDERS: PCP Family Medicine; Visit Provider Family Medicine
DX: M85.80 Other specified disorders of bone density and structure, unspecified site (principal); R53.1 Weakness
CPT/HCPCS: 82306; 83735

== ENCOUNTER → 2021-04-26 07:42 | Outpatient (CLI) | payer MEDICARE, OTHER, SELFPAY ==
[2018-03-01 12:18] VITALS: BMI 21.3
[2021-04-26 23:12] LABS: COVID19 - ORCAS (NP or Nasal) Negative (Negative)
== END ==
PROVIDERS: PCP Family Medicine; Visit Provider Family Medicine
DX: Z20.822 Contact with and (suspected) exposure to COVID-19 (principal)
CPT/HCPCS: C9803; U0003

== ENCOUNTER → 2021-05-10 12:34 | Outpatient (CLI) | payer MEDICARE, OTHER, SELFPAY ==
[2018-03-01 12:18] VITALS: BMI 21.3
--- NOTE | 2021-05-10 12:35 | DI.MRI.S_ITS ---
PROCEDURE: MR HIP RT WO CON INDICATIONS: Right acetabular impingement TECHNIQUE: Noncontrast coronal T1 spin echo and STIR through the bony pelvis. Coronal and axial T2 fast spin echo with fat saturation, sagittal T1 spin echo, and oblique axial T2 fast spin echo with fat saturation through the hip. COMPARISON: None. FINDINGS: Image quality: Excellent. Bones and joints: Faint T2 hyperintense signal within the greater trochanter, compatible with edema/contusion. No avascular necrosis of the femoral heads. The visualized lower lumbar spine appears normally aligned. Tendons and ligaments: A 1.7 x 1.3 cm T2 hyperintense focus is seen at the gluteus medius/minimus attachment, compatible with tendinopathy and partial tear. The nearby proximal iliotibial band also appears intact. The iliopsoas tendon appears intact, without adjacent bursal fluid collections or evidence for impingement syndrome. Minimal T2 signal within the hamstring attachment at the ischial tuberosity. The ligamentum teres appears intact where visualized. Labrum and cartilage: The acetabular labrum appears intact in the absence of intra-articular contrast. Cartilage surface of the femoral head appears of normal thickness. Soft tissues: Visualized muscles demonstrate normal bulk and internal signal. The proximal sciatic neurovascular bundle appears normal adjacent to the hamstring tendons. No free pelvic fluid. Bladder wall thickness is normal. Genitourinary structures and bowel loops appear normal where visualized. IMPRESSION: 1. Edematous signal at the gluteus medius/minimus attachment, compatible with tendinopathy and partial tear. 2. Mild edema/contusion of the right greater trochanter. 3. Minimal hamstring tendinopathy at the ischial tuberosity. Dictated by: Hector Tracy M.D. on 05/10/2021 at 15:34 Approved by: Hector Tracy M.D. on 05/10/2021 at 15:41
== END ==
PROVIDERS: PCP Family Medicine; Referring Provider Physical Medicine & Rehabilitation; Visit Provider Physical Medicine & Rehabilitation
DX: M53.3 Sacrococcygeal disorders, not elsewhere classified (principal); M25.851 Other specified joint disorders, right hip; M51.26 Other intervertebral disc displacement, lumbar region; M25.451 Effusion, right hip
CPT/HCPCS: 73721

== ENCOUNTER → 2021-05-15 09:56 | Outpatient (CLI) | payer MEDICARE, OTHER, SELFPAY ==
[2018-03-01 12:18] VITALS: BMI 21.3
[2021-05-15 19:10] LABS: Vitamin D 25 Hydroxy (D3) 49.1 ng/mL (30.0-100.0)
== END ==
PROVIDERS: PCP Family Medicine; Visit Provider Family Medicine
DX: M85.80 Other specified disorders of bone density and structure, unspecified site (principal)
CPT/HCPCS: 82306

== ENCOUNTER → 2021-06-27 13:22 | Outpatient (CLI) | payer MEDICARE, OTHER, SELFPAY ==
[2018-03-01 12:18] VITALS: BMI 21.3
== END ==
PROVIDERS: Family Provider Family Medicine; PCP Family Medicine; Referring Provider Physical Medicine & Rehabilitation; Visit Provider Physical Medicine & Rehabilitation
DX: M51.26 Other intervertebral disc displacement, lumbar region (principal); M53.3 Sacrococcygeal disorders, not elsewhere classified; M25.551 Pain in right hip
CPT/HCPCS: 95886; 95909

== ENCOUNTER → 2021-06-27 13:26 | Outpatient (CLI) | payer MEDICARE, OTHER, SELFPAY ==
[2018-03-01 12:18] VITALS: BMI 21.3
== END ==
PROVIDERS: Family Provider Family Medicine; PCP Family Medicine; Referring Provider Physical Medicine & Rehabilitation; Visit Provider Physical Medicine & Rehabilitation
DX: G54.0 Brachial plexus disorders (principal); M25.532 Pain in left wrist; M85.80 Other specified disorders of bone density and structure, unspecified site; M81.0 Age-related osteoporosis without current pathological fracture; M53.3 Sacrococcygeal disorders, not elsewhere classified; M25.551 Pain in right hip
CPT/HCPCS: 95886; 95909; 95912

== ENCOUNTER → 2021-11-22 11:54 | Outpatient (CLI) | payer MEDICARE, OTHER, SELFPAY ==
[2021-11-04 10:08] VITALS: BMI 21.3
[2021-11-22 18:28] LABS: Add Manual Diff / Slide Review NO; Basophils Absolute Auto 0 /uL (0-100); Basophils Percent Auto 0.5 % (0-2); Eosinophils Absolute Auto 0 /uL (0-450); Eosinophils Percent Auto 0.4 % (2-4); Hematocrit 40.7 % (36-46); Hemoglobin 13.9 g/dL (12.0-16.0); Lymphocytes Absolute Auto 800 /uL (1100-4500); Lymphocytes Percent Auto 19.4 % (25-40); Mean Corpuscular HGB Conc 34.2 % (30-36); Mean Corpuscular Hemoglobin 30.4 PG (26-34); Mean Corpuscular Volume 88.7 fL (80-100); Monocytes Absolute Auto 200 /uL (0-900); Neutrophils Absolute Auto 3200 /uL (1500-7000); Neutrophils Percent Auto 74.7 % (50-75); Platelet Count 239 X10^3/uL (150-400); Red Blood Cell Count 4.59 X10^6/uL (4.0-5.2); Red Cell Distribution Width 12.9 % (11.6-14.8); White Blood Cell Count 4.2 X10^3/uL (4.5-11.0)
[2021-11-22 18:34] LABS: BUN Creatinine Ratio 22.1 (6-22); Blood Urea Nitrogen 15 mg/dL (7-17); Calcium 9.7 mg/dL (8.4-10.2); Carbon Dioxide 32 mmol/L (22-32); Chloride 101 mmol/L (98-107); Cholesterol 221 mg/dL (140-199); Estimated Glomerular Filt Rate > 60 mL/min (>60); Glucose 112 mg/dL (80-110); HDL Cholesterol 87 mg/dL (40-60); HEMOLYSIS < 15 (0-50); LDL Cholesterol Calculated 119 mg/dL (<100); Magnesium 1.9 mg/dL (1.6-2.3); Potassium 3.6 mmol/L (3.4-5.1); Sodium 138 mmol/L (137-145); Triglycerides 76 mg/dL (35-150)
[2021-11-22 18:35] LABS: Hemoglobin A1C% w Est Avg Glu 5.6 % (4.0-6.0)
[2021-11-22 19:05] LABS: Thyroid Stimulating Hormone 1.84 uIU/mL (0.47-4.68)
[2021-11-22 19:21] LABS: Vitamin B12 866 pg/mL (239-931)
[2021-11-24 04:09] LABS: Calcium 9.8 mg/dL (8.7-10.3); Parathyroid Hormone, Intact 53 pg/mL (15-65)
[2021-11-26 18:07] LABS: ANA Screen, IFA Positive (.)
== END ==
PROVIDERS: Family Provider Family Medicine; PCP Family Medicine; Visit Provider Family Medicine
DX: R53.1 Weakness (principal); M25.512 Pain in left shoulder; M25.511 Pain in right shoulder; E03.9 Hypothyroidism, unspecified; M85.80 Other specified disorders of bone density and structure, unspecified site; R10.9 Unspecified abdominal pain; E34.9 Endocrine disorder, unspecified; I10 Essential (primary) hypertension; Z13.220 Encounter for screening for lipoid disorders; G89.29 Other chronic pain; R43.0 Anosmia; R43.2 Parageusia; H91.90 Unspecified hearing loss, unspecified ear; R30.0 Dysuria
CPT/HCPCS: 80048; 80061; 80156; 82306; 82310; 82607; 83036; 83735; 83970; 84443; 85025; 86038; 87086

== ENCOUNTER 2021-11-28 10:56 | Emergency (ER) | payer MEDICARE, OTHER, SELFPAY ==
[2021-11-04 10:08] VITALS: BMI 21.3
[2021-11-28] VITALS (8 sets, daily range): BP systolic 143–175; BP diastolic 71–81; PULSE 62–76; RESP 12–18; TEMP 36.9; O2SAT 96–100; BMI 21.6
[2021-11-28 13:11] LABS: Add Manual Diff / Slide Review NO; Basophils Absolute Auto 0 /uL (0-100); Basophils Percent Auto 0.8 % (0-2); Eosinophils Absolute Auto 0 /uL (0-450); Eosinophils Percent Auto 0.6 % (2-4); Hemoglobin 14.4 g/dL (12.0-16.0); Lymphocytes Absolute Auto 1300 /uL (1100-4500); Mean Corpuscular HGB Conc 34.4 % (30-36); Mean Corpuscular Hemoglobin 30.7 PG (26-34); Mean Corpuscular Volume 89.2 fL (80-100); Monocytes Absolute Auto 300 /uL (0-900); Monocytes Percent Auto 7.4 % (3-14); Neutrophils Absolute Auto 2500 /uL (1500-7000); Neutrophils Percent Auto 60.2 % (50-75); Platelet Count 227 X10^3/uL (150-400); Red Cell Distribution Width 13.2 % (11.6-14.8); White Blood Cell Count 4.2 X10^3/uL (4.5-11.0)
[2021-11-28 13:17] LABS: Alanine Aminotransferase 27 IU/L (<35); Albumin 4.6 g/dL (3.5-5.0); Albumin Globulin Ratio 1.5 (1.0-2.8); Alkaline Phosphatase 78 U/L (38-126); Aspartate Aminotransferase 34 IU/L (14-36); BUN Creatinine Ratio 17.9 (6-22); Bilirubin Total 1.1 mg/dL (0.2-1.3); Blood Urea Nitrogen 12 mg/dL (7-17); Calcium 9.5 mg/dL (8.4-10.2); Carbon Dioxide 32 mmol/L (22-32); Chloride 99 mmol/L (98-107); Estimated Glomerular Filt Rate > 60 mL/min (>60); Globulin 3.1 g/dL (1.7-4.1); Glucose 106 mg/dL (80-110); HEMOLYSIS < 15 (0-50); Lipase 250 U/L (23-300); Potassium 3.5 mmol/L (3.4-5.1); Sodium 138 mmol/L (137-145); Total Protein 7.7 g/dL (6.3-8.2)
[2021-11-28 13:20] LABS: INR 1.1 (0.9-1.3); Prothrombin Time 12.3 SECONDS (10.1-12.7)
[2021-11-28 13:22] LABS: PTT Partial Thromboplastin Tim 32 SECONDS (26.4-36.2)
--- NOTE | 2021-11-28 13:32 | DI.CT.S_ITS ---
PROCEDURE: CT ABDOMEN PELVIS WO CON INDICATIONS: epigastric pain TECHNIQUE: Noncontrast 5 mm thick sections acquired from the diaphragms to the symphysis. 5 mm coronal and sagittal reformats were then performed. For radiation dose reduction, the following was used: automated exposure control, adjustment of mA and/or kV according to patient size. COMPARISON: [facility], CT, CT KIDNEY URETER BLADDER (KUB), 07/23/2018, 14:07. FINDINGS: Image quality: Excellent. ABDOMEN: Lung bases: Lung bases are clear. Heart size is normal. Solid organs: Liver is normal in size. Multiple stable low-density liver lesions likely represent cysts. Gallbladder is unremarkable . Pancreas is normal in contours. Mild diffuse prominence of the pancreatic duct is stable. Spleen is normal in size. No adrenal nodules. Bilateral nonobstructing stones in the kidneys.. These include greater than 10 very small stones in the right kidney, the largest of which measures 3 mm. On the left, there are at least 6 stones. The largest left stone measures approximately 4 x 7 mm, with a Hounsfield measurement of 685. Peritoneum and bowel: Unenhanced bowel loops demonstrate normal wall thickness and caliber. No free fluid or air. Nodes and vessels: No retroperitoneal or mesenteric adenopathy by size criteria. Aorta and inferior vena cava are normal in caliber. Miscellaneous: No ventral hernias. PELVIS: Genitourinary: Bladder wall thickness is normal. Miscellaneous: No inguinal hernias or adenopathy. Uterus is surgically absent. Bones: No suspicious bony lesions. No vertebral body compression fractures. IMPRESSION: 1. Numerous bilateral nonobstructing renal stones. 2. No evidence acute abdominal process. Dictated by: Arian Silva M.D. on 11/28/2021 at 13:52 Approved by: Arian Silva M.D. on 11/28/2021 at 14:24
--- NOTE | 2021-11-28 13:33 | ED_ITS ---
HPI - Abdominal Pain <Zan Mendes PA-C - Last Filed: 11/28/21 16:24> General Chief Complaint: Abdominal Pain Stated Complaint: flank pain and upper stomache 7 days Time Seen by Provider: 11/28/21 13:17 Source: patient Mode of arrival: Ambulatory History of Present Illness HPI narrative: Patient is a 71-year-old female presents to the ED complaining of pain in the epigastric region as well as burning sensation in your itis in the right flank area. She has had off and on issues with both for the last week. She has concerns about and peptic ulcer disease or gastric ulcer and she is wanting to be evaluated for that today. She states that the rash on the side of her flank region on the right side is itching she denies any pain no blistering or any other trauma or any other findings reported. Other than puritis. Patient states the epigastric pain is sharp in nature nonradiating she has had her gallbladder evaluated in the past although she denies any pain related around meals. She states that the pain is constant nothing seems to make it better nothing seems to make it worse. She denies any nausea or vomiting or diarrhea. She denies any black tarry stools or discolorations of her stools. No reported fever. Related Data Home Medications Medication Instructions Recorded Confirmed acetaminophen 325 mg tablet 325 mg PO PRN PRN #0 11/02/17 05/09/21 latanoprost 0.005 % eye drops drp OPHTHALMIC (EYE) 12/31/20 05/09/21 mupirocin 2 % topical ointment 1 applic TOPICAL BID 12/31/20 05/09/21 cholecalciferol (vitamin D3) 50 50 mcg PO DAILY 05/01/21 05/09/21 mcg (2,000 unit) capsule Previous Rx's Medication Instructions Recorded MASSAGE THERAPY #1 ea 10/23/20 hydrochlorothiazide 25 mg tablet 25 mg PO DAILY #90 tab 01/28/21 levothyroxine 50 mcg tablet 50 mcg PO QAM #90 tab 05/22/21 diazepam 5 mg tablet 5 mg PO TID PRN #30 tab 06/12/21 carbamide peroxide 6.5 % ear drops 3 drp EAR-LEFT ONCE #15 ml 06/19/21 (Debrox) estradiol See Rx Instructions .ROUTE 07/22/21 .COMPLEX #42.5 g Allergies Allergy/AdvReac Type Severity Reaction Status Date / Time aspirin [ASPIRIN] Allergy Severe ANAPHALAXIS Verified 11/28/21 11:03 sulfamethoxazole Allergy Severe MOUTH Verified 11/28/21 11:03 [From BLISTERS Sulfamethoxazole-Trimethoprim] trimethoprim Allergy Severe MOUTH Verified 11/28/21 11:03 [From BLISTERS Sulfamethoxazole-Trimethoprim] doxycycline Allergy Intermediate Nausea Verified 11/28/21 11:03 cramp in calf metoprolol Allergy Intermediate FACE Verified 11/28/21 11:03 NUMBNESS nitrofurantoin Allergy Intermediate LEG Verified 11/28/21 11:03 NUMBNESS AND WEAKNESS/RESPIRATORY amoxicillin Allergy Unknown Verified 11/28/21 11:03 ciprofloxacin Allergy Unknown MOTHER Verified 11/28/21 11:03 SUFFERED DETACHED TENDON SO PATIENT REFUSES TO TAKE. Review of Systems <Zan Mendes PA-C - Last Filed: 11/28/21 16:24> Review of Systems ROS Unobtainable: All systems reviewed & are unremarkable except as noted in HPI and below Constitutional Constitutional: Denies chills, Denies fatigue, Denies fever(s), Denies frequent falls, Denies lethargy and Denies weakness Eyes Eyes: Denies change in vision, Denies eye discharge, Denies irritation and Denies loss of vision ENT Ears, Nose, Mouth, and Throat: Denies change in voice, Denies dizziness, Denies neck pain, Denies sore throat and Denies throat swelling Cardiovascular Cardiovascular: Denies chest pain, Denies irregular heart rhythm, Denies lightheadedness, Denies palpitations, Denies dyspnea, Denies dyspnea on exertion and Denies orthopnea Respiratory Respiratory: Denies cough, Denies dyspnea, Denies dyspnea on exertion and Denies wheezing Gastrointestinal Gastrointestinal: Reports abdominal pain, Denies change in bowel habits, Reports dyspepsia, Denies diarrhea, Reports loose stools, Denies nausea and Denies vomiting Genitourinary Genitourinary: Denies hematuria, Denies flank pain, Denies urinary incontinence and Denies urinary urgency Musculoskeletal Musculoskeletal: Denies back pain, Denies muscle weakness, Denies neck pain, Denies numbness and Denies tingling Integumentary/Breasts Skin/Breast: Denies pruritus, Denies erythema, Denies rash and Denies wounds Neurologic Neurologic: Denies behavioral changes, Denies confusion, Denies dizziness, Denies frequent falls, Denies loss of vision, Denies numbness, Denies tingling and Denies weakness Psychiatric Psychiatric: Denies anxiety, Denies behavioral changes, Denies confusion, Denies depression, Denies homicidal ideation and Denies suicidal ideation Endocrine Endocrine: Denies fatigue, Denies flushing and Denies palpitations Hematologic/Lymphatic Hematologic/Lymphatic: Denies easy bruising Allergic/Immunologic Allergic/Immunologic: Denies urticaria, Denies throat swelling and Denies wheezing Patient History <Zan Mendes PA-C - Last Filed: 11/28/21 16:24> Medical History Aneurysmal dilatation (11/02/17) Bladder prolapse Chicken pox Elevated parathyroid hormone Femoral acetabular impingement Fibroids Frequent UTI Gastric ulcer (~1986) Hearing loss (~2003) Heavy menstrual period (~1969) Hemangioma of liver Hemorrhoid Herniated nucleus pulposus, L4-5 Herpes (~2017) History of nephrolithiasis Hypertension Hypothyroidism (~2010) Incomplete right bundle branch block (RBBB) Kidney stones Liver cyst Palpitations Sacral dysfunction Scoliosis Shoulder pain (~2015) Skin cancer Vaginal atrophy Surgical History Anesthesia Cystocele with rectocele (~2017) History of tonsillectomy Status post hysterectomy with oophorectomy (~1999) Family History Father Cancer Mother Pneumonia Brother Automobile accident Social History household members: spouse Smoking Status: Never smoker alcohol intake: never Smoking Status: Never smoker alcohol intake frequency: holidays/special occasions only Substance Use Type: does not use Exam <Zan Mendes PA-C - Last Filed: 11/28/21 16:24> Initial Vital Signs Initial Vital Signs: Vital Signs Temperature 98.5 F 11/28/21 11:03 Pulse Rate 76 11/28/21 11:03 Respiratory Rate 14 11/28/21 11:03 Blood Pressure 175/81 H 11/28/21 11:03 Pulse Oximetry 98 11/28/21 11:03 Const General: cooperative, healthy appearing and comfortable Nutritional Appearance: average body habitus [facility] Head: normal to inspection Ears: hearing grossly normal bilaterally Nose: external nose normal Face and sinus: normal facial exam Neck Neck: normal visual inspection and full ROM Resp Effort & Inspection: normal respiratory effort and able to speak in complete sentences Auscultation: clear to auscultation bilaterally GI Inspection: normal to inspection Palpation: soft and no hepatosplenomegaly Percussion: normal to percussion Neuro General: patient alert, patient awake and patient oriented x3 <DO Fred Patotn Last Filed: 12/01/21 08:13> Initial Vital Signs Initial Vital Signs: Vital Signs Temperature 98.5 F 11/28/21 11:03 Pulse Rate 76 11/28/21 11:03 Respiratory Rate 14 11/28/21 11:03 Blood Pressure 175/81 H 11/28/21 11:03 Pulse Oximetry 98 11/28/21 11:03 Course <Zan Mendes PA-C - Last Filed: 11/28/21 16:24> Orders Ordered: Discontinued Medications Al Hydrox/Mg Hydrox/Simethicone 20 ml/ Lidocaine HCl 15 ml 0 ml PO NOW ONE Stop: 11/28/21 14:44 Last Admin: 11/28/21 15:31 Dose: 35 ml Documented by: EASTON Reevaluation(s) Reevaluation #1: GI Cocktail reported alleviating her epigastric pain Vital Signs Vital signs: Vital Signs - 8 hr 11/28/21 11:03 11/28/21 12:44 11/28/21 12:45 Temperature 98.5 F Pulse Rate 76 67 67 Respiratory Rate 14 12 Blood Pressure 175/81 H 167/79 H Pulse Oximetry 98 100 11/28/21 13:00 11/28/21 14:12 11/28/21 14:13 Temperature Pulse Rate 66 67 67 Respiratory Rate 17 18 Blood Pressure 164/74 H 143/75 H 143/75 H Pulse Oximetry 99 96 99 11/28/21 14:30 Temperature Pulse Rate 62 Respiratory Rate 16 Blood Pressure Pulse Oximetry 99 <DO Fred Patton Last Filed: 12/01/21 08:13> Orders Ordered: Discontinued Medications Al Hydrox/Mg Hydrox/Simethicone 20 ml/ Lidocaine HCl 15 ml 0 ml PO NOW ONE Stop: 11/28/21 14:44 Last Admin: 11/28/21 15:31 Dose: 35 ml Documented by: EASTON Vital Signs Vital signs: Vital Signs - 8 hr 11/28/21 11:03 11/28/21 12:44 11/28/21 12:45 Temperature 98.5 F Pulse Rate 76 67 67 Respiratory Rate 14 12 Blood Pressure 175/81 H 167/79 H Pulse Oximetry 98 100 11/28/21 13:00 11/28/21 14:12 11/28/21 14:13 Temperature Pulse Rate 66 67 67 Respiratory Rate 17 18 Blood Pressure 164/74 H 143/75 H 143/75 H Pulse Oximetry 99 96 99 11/28/21 14:30 Temperature Pulse Rate 62 Respiratory Rate 16 Blood Pressure Pulse Oximetry 99 MDM - Abdominal Pain <Zan Mendes PA-C - Last Filed: 11/28/21 16:24> Differential Diagnosis Differential diagnosis: Likely calculus of kidney and other Lab Data Result diagrams: 11/28/21 12:52 11/28/21 12:52 Labs: Lab Results 11/28/21 11/28/21 11/28/21 Range/Units 12:52 12:52 12:52 WBC 4.2 L (4.5-11.0) X10^3/uL RBC 4.70 (4.0-5.2) X10^6/uL Hgb 14.4 (12.0-16.0) g/dL Hct 42.0 (36-46) % MCV 89.2 (80-100) fL MCH 30.7 (26-34) PG MCHC 34.4 (30-36) % RDW 13.2 (11.6-14.8) % Plt Count 227 (150-400) X10^3/uL Neut % (Auto) 60.2 (50-75) % Lymph % (Auto) 31.0 (25-40) % [place] % (Auto) 7.4 (3-14) % Eos % (Auto) 0.6 L (2-4) % Baso % (Auto) 0.8 (0-2) % Neut # (Auto) 2500 (7159-3090) /uL Lymph # (Auto) 1300 (2243-1735) /uL [place] # (Auto) 300 (0-900) /uL Eos # (Auto) 0 (0-450) /uL Baso # (Auto) 0 (0-100) /uL PT 12.3 (10.1-12.7) SECONDS INR 1.1 (0.9-1.3) APTT 32 (26.4-36.2) SECONDS Sodium 138 (137-145) mmol/L Potassium 3.5 (3.4-5.1) mmol/L Chloride 99 (98-107) mmol/L Carbon Dioxide 32 (22-32) mmol/L BUN 12 (7-17) mg/dL Creatinine 0.67 (0.52-1.04) mg/dL Estimated GFR > 60 (>60) mL/min BUN/Creatinine Ratio 17.9 (6-22) Glucose 106 (80-110) mg/dL Calcium 9.5 (8.4-10.2) mg/dL Total Bilirubin 1.1 (0.2-1.3) mg/dL AST 34 (14-36) IU/L ALT 27 (<35) IU/L Alkaline Phosphatase 78 (38-126) U/L Total Protein 7.7 (6.3-8.2) g/dL Albumin 4.6 (3.5-5.0) g/dL Globulin 3.1 (1.7-4.1) g/dL Albumin/Globulin Ratio 1.5 (1.0-2.8) Lipase 250 (23-300) U/L Point of care testing: Urine Dip Bedside Urine Glucose Negative Bedside Urine Bilirubin - Negative Bedside Urine Ketone - Negative Urine Specific [place] 1.015 Bedside Urine Occult Blood - Negative Bedside Urine pH 6.5 Bedside Urine Protein - Negative Bedside Urine Urobilinogen - Negative Bedside Urine Nitrite - Negative Bedside Urine Leukocytes - Negative Esterase Imaging Data CT scan - abdomen/pelvis: Radiologist's Impression: [address] [address] [address] Scan Report Signed Patient: Lena Kaur MR#: [id number] : 1950 Acct:[id number] Age/Sex: 71 / F Date of Service: 11/28/21 Loc: ED Accession Number: [id number] ?? Procedure: CT abdomen pelvis wo con Ordering Provider: Zan Mendes P.A-C PROCEDURE:? CT ABDOMEN PELVIS WO CON ? INDICATIONS:? epigastric pain ? TECHNIQUE:? Noncontrast 5 mm thick sections acquired from the diaphragms to the symphysis.? 5 mm coronal and sagittal reformats were then performed.? For radiation dose reduction, the following was used:? automated exposure control, adjustment of mA and/or kV according to patient size.? ? COMPARISON:? [facility], CT, CT KIDNEY URETER BLADDER (KUB), 07/23/2018, 14:07. ? FINDINGS:? Image quality:? Excellent.? ? ABDOMEN:? Lung bases:? Lung bases are clear.? Heart size is normal.? ? Solid organs:? Liver is normal in size.? Multiple stable low-density liver lesions likely represent cysts.? Gallbladder is unremarkable .? Pancreas is normal in contours.? Mild diffuse prominence of the pancreatic duct is stable.? Spleen is normal in size.? No adrenal nodules.? Bilateral nonobstructing stones in the kidneys..? These include greater than 10 very small stones in the right kidney, the largest of which measures 3 mm.? On the left, there are at least 6 stones.? The largest left stone measures approximately 4 x 7 mm, with a Hounsfield measurement of 685.? ? Peritoneum and bowel:? Unenhanced bowel loops demonstrate normal wall thickness and caliber.? No free fluid or air.? ? Nodes and vessels:? No retroperitoneal or mesenteric adenopathy by size criteria.? Aorta and inferior vena cava are normal in caliber.? ? Miscellaneous:? No ventral hernias.? ? ? PELVIS:? Genitourinary:? Bladder wall thickness is normal.? ? Miscellaneous:? No inguinal hernias or adenopathy.? Uterus is surgically absent. ? Bones:? No suspicious bony lesions.? No vertebral body compression fractures.? ? IMPRESSION:? ? 1. Numerous bilateral nonobstructing renal stones. ? 2. No evidence acute abdominal process.? ? ? Dictated by: Arian Silva M.D. on 11/28/2021 at 13:52 ? ? Approved by: Arian Silva M.D. on 11/28/2021 at 14:24?? MDM Narrative Medical decision making narrative: Patient was treated for abdominal pain and right flank pain. CT demonstrates multiple small nonobstructing stones in right kidney which I believe is likely the cause of her discomfort in right flank area as mentioned in HPI. Her epigastric pain was alleviated with GI Cocktail and there was no identified abnormalities seen in the CT that would suggest anything structurally wrong, therefore we will discharge this patient home and will recommend a PPI OTC as directed. She should follow up with her PCP for possible flomax and further evaluation of her stones. Patient will be discharged home. <Lacy Myla, DO - Last Filed: 12/01/21 08:13> Lab Data Labs: Lab Results 11/28/21 11/28/21 11/28/21 Range/Units 12:52 12:52 12:52 WBC 4.2 L (4.5-11.0) X10^3/uL RBC 4.70 (4.0-5.2) X10^6/uL Hgb 14.4 (12.0-16.0) g/dL Hct 42.0 (36-46) % MCV 89.2 (80-100) fL MCH 30.7 (26-34) PG MCHC 34.4 (30-36) % RDW 13.2 (11.6-14.8) % Plt Count 227 (150-400) X10^3/uL Neut % (Auto) 60.2 (50-75) % Lymph % (Auto) 31.0 (25-40) % [place] % (Auto) 7.4 (3-14) % Eos % (Auto) 0.6 L (2-4) % Baso % (Auto) 0.8 (0-2) % Neut # (Auto) 2500 (1938-2095) /uL Lymph # (Auto) 1300 (6524-9491) /uL [place] # (Auto) 300 (0-900) /uL Eos # (Auto) 0 (0-450) /uL Baso # (Auto) 0 (0-100) /uL PT 12.3 (10.1-12.7) SECONDS INR 1.1 (0.9-1.3) APTT 32 (26.4-36.2) SECONDS Sodium 138 (137-145) mmol/L Potassium 3.5 (3.4-5.1) mmol/L Chloride 99 (98-107) mmol/L Carbon Dioxide 32 (22-32) mmol/L BUN 12 (7-17) mg/dL Creatinine 0.67 (0.52-1.04) mg/dL Estimated GFR > 60 (>60) mL/min BUN/Creatinine Ratio 17.9 (6-22) Glucose 106 (80-110) mg/dL Calcium 9.5 (8.4-10.2) mg/dL Total Bilirubin 1.1 (0.2-1.3) mg/dL AST 34 (14-36) IU/L ALT 27 (<35) IU/L Alkaline Phosphatase 78 (38-126) U/L Total Protein 7.7 (6.3-8.2) g/dL Albumin 4.6 (3.5-5.0) g/dL Globulin 3.1 (1.7-4.1) g/dL Albumin/Globulin Ratio 1.5 (1.0-2.8) Lipase 250 (23-300) U/L Point of care testing: Urine Dip Bedside Urine Glucose Negative Bedside Urine Bilirubin - Negative Bedside Urine Ketone - Negative Urine Specific [place] 1.015 Bedside Urine Occult Blood - Negative Bedside Urine pH 6.5 Bedside Urine Protein - Negative Bedside Urine Urobilinogen - Negative Bedside Urine Nitrite - Negative Bedside Urine Leukocytes - Negative Esterase Discharge Plan Departure Patient Disposition: Home Clinical Impression: Calculus of kidney Gastritis Qualifiers: Gastritis type: unspecified gastritis Chronicity: acute Gastritis bleeding: without bleeding Qualified Code(s): K29.00 - Acute gastritis without bleeding Instructions: DI for Kidney Stones, DI for Gastritis Activity Restrictions/Additional Instructions: You were seen today for your epigastric pain which I believe is a result of gastritis. We spoke about starting you on an acid chief of field operations of which you can choose which one you prefer over the counter. Zantac would be an acceptable option that you can take as needed until symptoms resolve. If you continue to have symptoms you can consider an upper GI of which your PCP will refer you to. With regard to your flank pain, it is likely the result of your kidney stones. None of these kidney stones were obstructive. There were 10 stones identified in the right kidney and 6 stones identified in the left kidney. Follow up with your PCP for further evaulation and treatment. Thank you for the opportunity to care for you today. Prescriptions: No Action acetaminophen 325 MG tablet 325 mg PO PRN PRN (Reason: Pain (Scale Score 1-3)) Qty: 0 0RF (DME) MASSAGE THERAPY See Rx Instructions .Route .MEDSUPPLY Qty: 1 0RF Rx Instructions: EVALUATE AND TREAT NEEDED levothyroxine 50 mcg tablet 50 mcg PO QAM Qty: 90 1RF diazepam 5 mg tablet 5 mg PO TID PRN (Reason: anxiety) Qty: 30 0RF estradiol 0.01 % (0.1 mg/gram) cream See Rx Instructions .ROUTE .COMPLEX Qty: 42.5 4RF Dose Instruction: INSERT (1/2) GRAM INTO VAGINA ONCE DAILY AT BEDTIME FOR 14 DAYS THEN TWICE WEEKLY THEREAFTER Rx Instructions: INSERT (1/2) GRAM INTO VAGINA ONCE DAILY AT BEDTIME FOR 14 DAYS THEN TWICE WEEKLY THEREAFTER hydrochlorothiazide 25 mg tablet 25 mg PO DAILY Qty: 90 3RF mupirocin 2 % ointment 1 applic topical BID 0RF latanoprost 0.005 % drops ophthalmic (eye) 0RF carbamide peroxide [Debrox] 6.5 % drops 3 drp EAR-LEFT ONCE Qty: 15 0RF cholecalciferol (vitamin D3) 50 mcg (2,000 unit) capsule 50 mcg PO DAILY 0RF Referrals: Helio Strong MD [Primary Care Provider] - <Lacy Lanza DO - Last Filed: 12/01/21 08:13> Cosign ED Attending Cosignature Attestation: I was immediately available in the department for consultation. Documentation has been reviewed. I agree with assessment and plan.
[2021-11-28] MEDS: MAG HYDROX/ALUMINUM/SIMETH SUS 20 ML, LIDOCAINE VISCOUS 2% 15 ML PO (15:31)
== END 2021-11-28 16:35 | disposition home or self-care (01) ==
PROVIDERS: Emergency Medicine; Emergency Provider Physician Assistant; Family Provider Family Medicine; PCP Family Medicine
DX: N20.0 Calculus of kidney (principal); K29.00 Acute gastritis without bleeding; R10.13 Epigastric pain
CPT/HCPCS: 36415; 74176; 80053; 81003; 83690; 85025; 85610; 85730; 93005; 99284

== ENCOUNTER → 2021-12-27 11:10 | Outpatient (CLI) | payer MEDICARE, OTHER, SELFPAY ==
[2021-12-04 15:38] VITALS: BMI 21.3
[2021-12-30 14:36] LABS: Scleroderma 70 Antibody < 0.2 AI (0.0-0.9)
== END ==
PROVIDERS: Family Provider Family Medicine; PCP Family Medicine; Visit Provider Family Medicine
DX: R43.0 Anosmia (principal); R43.2 Parageusia; R53.81 Other malaise; R53.83 Other fatigue; R76.8 Other specified abnormal immunological findings in serum
CPT/HCPCS: 74018; 86235

== ENCOUNTER → 2022-02-11 13:56 | Outpatient (CLI) | payer MEDICARE, OTHER, SELFPAY ==
[2021-12-04 15:38] VITALS: BMI 21.3
[2022-02-11 20:27] LABS: Erythrocyte Sedimentation Rate 6 MM/HR (0-20)
[2022-02-13 11:42] LABS: Interpretation Negative (Negative)
[2022-02-13 15:36] LABS: Tissue Transglutaminase IgA <2 U/mL (0-3)
== END ==
PROVIDERS: Family Provider Family Medicine; PCP Family Medicine; Visit Provider Family Medicine
DX: K29.70 Gastritis, unspecified, without bleeding (principal); K29.50 Unspecified chronic gastritis without bleeding; K52.9 Noninfective gastroenteritis and colitis, unspecified
CPT/HCPCS: 83013; 83516; 85651

== ENCOUNTER → 2022-02-12 09:43 | Outpatient (CLI) | payer MEDICARE, OTHER, SELFPAY ==
[2021-12-04 15:38] VITALS: BMI 21.3
[2022-02-14 15:59] LABS: Fecal Immunochemical Test Negative (Negative)
[2022-02-18 17:14] LABS: Calprotectin, Stool 18 ug/g (0-120)
== END ==
PROVIDERS: Family Provider Family Medicine; PCP Family Medicine; Visit Provider Family Medicine
DX: K29.50 Unspecified chronic gastritis without bleeding (principal); K52.9 Noninfective gastroenteritis and colitis, unspecified; R43.0 Anosmia; R43.2 Parageusia; R76.8 Other specified abnormal immunological findings in serum
CPT/HCPCS: 82274; 83993; 87045; 87899

== ENCOUNTER → 2022-03-20 11:34 | Outpatient (CLI) | payer MEDICARE, OTHER, SELFPAY ==
[2021-12-04 15:38] VITALS: BMI 21.3
--- NOTE | 2022-03-20 11:35 | DI.MRI.S_ITS ---
PROCEDURE: MR SHOULDER LT WO CON INDICATIONS: Chronic left-sided shoulder pain no response to therapy TECHNIQUE: Noncontrast oblique coronal T2 fast spin echo with fat saturation, oblique sagittal T1 spin echo and T2 fast spin echo with fat saturation, axial T1 spin echo and T2 fast spin echo with fat saturation through the shoulder. COMPARISON: None. FINDINGS: Image quality: Excellent. Rotator cuff: Low to moderate grade articular and bursal surface partial thickness tear involving distal supraspinatus at its insertion on the humeral head is seen extending to musculotendinous junction. Distal infraspinatus tendinosis is noted. Distal subscapularis tendon is intact. No full-thickness rotator cuff tendon rupture. Sagittal images demonstrate no significant muscle atrophy. Bones and bursae: No bone marrow contusions or fractures. Mild to moderate acromioclavicular joint osteoarthritic changes are seen with joint space narrowing, subchondral sclerosis and small marginal osteophyte formation depressing the musculotendinous junction of supraspinatus. Small subacromial subdeltoid bursal fluid is seen. Capsule and soft tissues: There is signal abnormality and contour irregularity involving superior anterior labrum at 12 to 2 o'clock position suggestive of superior anterior labral tear. There is also suggestion of anterior-inferior labral tear at 5 to 6 o'clock position. The long head of the biceps tendon demonstrates normal location and morphology. The rotator interval appears normal, without fibrosis. The coracohumeral ligament is normal in thickness. IMPRESSION: 1. Low to moderate grade articular and bursal surface partial thickness tear involving distal supraspinatus extending to musculotendinous junction. Distal infraspinatus tendinosis. No full-thickness rotator cuff tendon rupture. No significant muscle atrophy. 2. Mild to moderate acromioclavicular joint osteoarthritis. No marrow edema. No fracture or dislocation. Small amount of subacromial subdeltoid bursal fluid. 3. Finding is suggestive of superior anterior labral tear at 12 to 1 o'clock position and anterior-inferior labral tear at 5 to 6 o'clock position. Dictated by: Jak Chao M.D. on 03/20/2022 at 14:18 Approved by: Jak Chao M.D. on 03/20/2022 at 14:21
== END ==
PROVIDERS: Family Provider Family Medicine; PCP Family Medicine; Referring Provider Family Medicine; Visit Provider Family Medicine
DX: M25.512 Pain in left shoulder (principal); M75.112 Incomplete rotator cuff tear or rupture of left shoulder, not specified as traumatic; M19.012 Primary osteoarthritis, left shoulder
CPT/HCPCS: 73221

== ENCOUNTER → 2022-05-12 15:02 | Outpatient (CLI) | payer MEDICARE, OTHER, SELFPAY ==
[2021-12-04 15:38] VITALS: BMI 21.3
--- NOTE | 2022-05-12 | DI.RAD.S_ITS ---
PROCEDURE: XR ACUTE ABDOMEN SERIES INDICATIONS: fecal urgency, altered bowel function TECHNIQUE: One view chest and two views of the abdomen were acquired. COMPARISON: None. FINDINGS: Surgical changes and devices: None. Chest: Lungs are clear. Heart size is normal. No pleural effusions. No pneumoperitoneum. Abdomen: Bowel gas pattern is nonobstructive. Moderate fecal stasis throughout the colon is seen. 5 mm oval calcification projecting in left renal fossa is noted. Visualized solid organ contours appear normal. Bones: No suspicious bony lesions. S shaped scoliosis of thoracic and lumbar spine is seen. IMPRESSION: 1. No acute cardiopulmonary pathology. 2. Moderate constipation and fecal impaction. No bowel obstruction or gross free air. 3. Suggestion of 5 mm left-sided renal calculus. Dictated by: Jak Chao M.D. on 05/12/2022 at 16:21 Approved by: Jak Chao M.D. on 05/12/2022 at 16:22
== END ==
PROVIDERS: Family Provider Family Medicine; PCP Family Medicine; Referring Provider Internal Medicine Gastroenterology; Visit Provider Internal Medicine Gastroenterology
DX: K59.00 Constipation, unspecified (principal); R15.2 Fecal urgency; R19.8 Other specified symptoms and signs involving the digestive system and abdomen
CPT/HCPCS: 74022

== ENCOUNTER → 2022-05-15 10:31 | Outpatient (CLI) | payer MEDICARE, OTHER, SELFPAY ==
[2021-12-04 15:38] VITALS: BMI 21.3
[2022-05-15 19:36] LABS: Add Manual Diff / Slide Review NO; Basophils Absolute Auto 0 /uL (0-100); Eosinophils Absolute Auto 0 /uL (0-450); Eosinophils Percent Auto 0.8 % (2-4); Hematocrit 39.1 % (36-46); Hemoglobin 13.5 g/dL (12.0-16.0); Lymphocytes Absolute Auto 1000 /uL (1100-4500); Lymphocytes Percent Auto 28.2 % (25-40); Mean Corpuscular HGB Conc 34.6 % (30-36); Mean Corpuscular Hemoglobin 30.8 PG (26-34); Mean Corpuscular Volume 88.9 fL (80-100); Monocytes Absolute Auto 300 /uL (0-900); Monocytes Percent Auto 8.1 % (3-14); Neutrophils Absolute Auto 2200 /uL (1500-7000); Neutrophils Percent Auto 61.9 % (50-75); Platelet Count 217 X10^3/uL (150-400); Red Blood Cell Count 4.39 X10^6/uL (4.0-5.2); Red Cell Distribution Width 12.8 % (11.6-14.8); White Blood Cell Count 3.6 X10^3/uL (4.5-11.0)
[2022-05-15 19:52] LABS: BUN Creatinine Ratio 22.1 (6-22); Blood Urea Nitrogen 15 mg/dL (7-17); Calcium 8.8 mg/dL (8.4-10.2); Carbon Dioxide 30 mmol/L (22-32); Chloride 98 mmol/L (98-107); Cholesterol 203 mg/dL (140-199); Estimated Glomerular Filt Rate > 60 mL/min (>60); Glucose 95 mg/dL (80-110); HDL Cholesterol 67 mg/dL (40-60); HEMOLYSIS < 15 (0-50); LDL Cholesterol Calculated 115 mg/dL (<100); Lipase 1313 U/L (23-300); Magnesium 1.7 mg/dL (1.6-2.3); Potassium 3.6 mmol/L (3.4-5.1); Sodium 135 mmol/L (137-145); Triglycerides 105 mg/dL (35-150)
[2022-05-15 20:49] LABS: Creatinine Urine Random 57.7 mg/dL; Protein (Total) Urine Random 11 mg/dL (0-12); Protein Creatinine Ratio Urine 0.19 GRAM/24H
[2022-05-19 02:50] LABS: Zinc 105 ug/dL (44-115)
== END ==
PROVIDERS: Student in an Organized Health Care Education/Training Program; Family Provider Family Medicine; PCP Family Medicine; Visit Provider Family Medicine
DX: G54.0 Brachial plexus disorders (principal); I10 Essential (primary) hypertension; E03.9 Hypothyroidism, unspecified; E04.1 Nontoxic single thyroid nodule; E34.9 Endocrine disorder, unspecified; G25.81 Restless legs syndrome; M81.0 Age-related osteoporosis without current pathological fracture; N20.0 Calculus of kidney; R43.0 Anosmia; R43.2 Parageusia; R82.994 Hypercalciuria; R80.9 Proteinuria, unspecified
CPT/HCPCS: 80048; 80061; 82397; 82570; 83690; 83735; 84156; 84630; 85025

== ENCOUNTER → 2022-06-03 12:17 | Outpatient (CLI) | payer MEDICARE, OTHER, SELFPAY ==
[2021-12-04 15:38] VITALS: BMI 21.3
[2022-06-03 13:49] LABS: Lipase 432 U/L (23-300)
== END ==
PROVIDERS: Family Provider Family Medicine; PCP Family Medicine; Referring Provider Internal Medicine Gastroenterology; Visit Provider Internal Medicine Gastroenterology
DX: R74.8 Abnormal levels of other serum enzymes (principal)
CPT/HCPCS: 36415; 83690

== ENCOUNTER → 2022-06-23 10:57 | Outpatient (CLI) | payer MEDICARE, OTHER, SELFPAY ==
[2021-12-04 15:38] VITALS: BMI 21.3
--- NOTE | 2022-06-23 10:58 | DI.US.S_ITS ---
PROCEDURE: US ABDOMEN COMPLETE INDICATIONS: ABDOMINAL PAIN. ELEVATED LIPASE. TECHNIQUE: Real-time scanning was performed of the abdominal and retroperitoneal organs, with image documentation. COMPARISON: [facility], CR, XR ACUTE ABDOMEN SERIES, 05/12/2022, 15:13. [facility], CT, CT ABDOMEN PELVIS WO CON, 11/28/2021, 13:44. [facility] ([place]), CR, XR KUB, 12/27/2021, 10:56. [facility], US, US ABDOMEN COMPLETE, 04/20/2018, 11:20. FINDINGS: Liver: Liver demonstrates normal size and normal overall echogenicity. The liver demonstrates a mildly heterogeneous appearance. There is an 8 mm anechoic cyst seen involving the left lobe of the liver. Within the right liver, there is a cyst seen with wall calcification that measures up to 3.4 cm. Within the right lobe of the liver, there is a hyperechoic homogeneous nonvascular focus that measures up to 8 mm. Gallbladder: The gallbladder is prominent in size, measuring 9.1 x 4.2 x 1.7 cm. No findings of gallstones or sludge are seen. The gallbladder wall is not thickened, measuring 3 mm or less. No specific pericholecystic fluid is seen. The sonographic Martin sign is negative. Biliary ducts: Intrahepatic bile ducts are non-dilated. Extrahepatic bile duct caliber measures 9 mm. Normal is 6-7 mm or less in diameter, or 10 mm or less post-cholecystectomy. Pancreas: Visualized portions of the pancreas are sonographically normal. The pancreatic duct is within normal limits at 1.7 mm. Spleen: Spleen is normal in size and homogeneous in echotexture. Kidneys: Kidneys are normal in size and echotexture. Right kidney measures 12.8 cm long; left kidney measures 11.9 cm long. No hydronephrosis or nephrolithiasis. No solid masses. Multiple bilateral kidney stones are seen. The largest is seen on the left measuring up to 8 mm. Within the right mid anterior kidney, there is an 8 mm cyst seen. The superior aspect of the right kidney is not well seen. Aorta: Visualized aorta is normal in caliber at less than 3 cm. Iliacs: Proximal common iliac arteries are normal in caliber at less than 2.5 cm. IVC: Intrahepatic inferior vena cava is patent. Miscellaneous: No free abdominal fluid. IMPRESSION: On this ultrasound, no significant pancreatic abnormality is identified. The pancreatic duct is not dilated. Prominent gallbladder size, without additional sonographic signs of cholecystitis. The common bile duct is prominent at 9 mm. No visualized stones are seen. Additional findings: Simple appearing left liver cyst Complex right renal cyst with wall calcification Likely right liver hemangioma Nonobstructing bilateral renal stones are seen. Simple appearing right kidney cyst Dictated by: Dk Gay M.D. on 06/23/2022 at 11:49 Approved by: Dk Gay M.D. on 06/23/2022 at 11:54
== END ==
PROVIDERS: Family Provider Family Medicine; PCP Family Medicine; Referring Provider Family Medicine; Visit Provider Family Medicine
DX: K85.90 Acute pancreatitis without necrosis or infection, unspecified (principal); K76.89 Other specified diseases of liver; N28.1 Cyst of kidney, acquired; N20.0 Calculus of kidney; M51.26 Other intervertebral disc displacement, lumbar region; M53.3 Sacrococcygeal disorders, not elsewhere classified; M75.42 Impingement syndrome of left shoulder; M25.859 Other specified joint disorders, unspecified hip
CPT/HCPCS: 76700; 99215

== ENCOUNTER → 2022-10-07 13:26 | Outpatient (CLI) | payer MEDICARE, OTHER, SELFPAY ==
[2021-12-04 15:38] VITALS: BMI 21.3
[2022-10-07 19:25] LABS: BUN Creatinine Ratio 27.4 (6-22); Blood Urea Nitrogen 20 mg/dL (7-17); Calcium 9.1 mg/dL (8.4-10.2); Carbon Dioxide 34 mmol/L (22-32); Chloride 99 mmol/L (98-107); Estimated Glomerular Filt Rate > 60 mL/min (>60); Glucose 106 mg/dL (80-110); HEMOLYSIS < 15 (0-50); Magnesium 1.9 mg/dL (1.6-2.3); Potassium 3.5 mmol/L (3.4-5.1); Sodium 137 mmol/L (137-145)
[2022-10-07 19:35] LABS: Vitamin D 25 Hydroxy (D3) 53.7 ng/mL (30.0-100.0)
[2022-10-07 19:45] LABS: TSH w/ Reflex to FT4 2.26 uIU/mL (0.47-4.68)
[2022-10-07 20:09] LABS: Vitamin B12 454 pg/mL (239-931)
[2022-10-10 13:19] LABS: Miscellaneous to LabCorp 48
[2022-10-10 17:46] LABS: Zinc 78 ug/dL (44-115)
== END ==
PROVIDERS: Family Provider Family Medicine; PCP Family Medicine; Visit Provider Internal Medicine Gastroenterology
DX: E04.1 Nontoxic single thyroid nodule (principal); I10 Essential (primary) hypertension; M81.0 Age-related osteoporosis without current pathological fracture; R15.2 Fecal urgency; R19.8 Other specified symptoms and signs involving the digestive system and abdomen; R43.9 Unspecified disturbances of smell and taste; R63.4 Abnormal weight loss; R74.8 Abnormal levels of other serum enzymes; E03.9 Hypothyroidism, unspecified; E34.9 Endocrine disorder, unspecified; K85.90 Acute pancreatitis without necrosis or infection, unspecified; N20.0 Calculus of kidney; R43.0 Anosmia; R43.2 Parageusia; R82.994 Hypercalciuria
CPT/HCPCS: 80048; 82306; 82607; 82787; 83735; 84443; 84630

== ENCOUNTER → 2022-11-10 12:02 | Outpatient (CLI) | payer MEDICARE, OTHER, SELFPAY ==
[2021-12-04 15:38] VITALS: BMI 21.3
[2022-11-10 20:31] LABS: Lipase 366 U/L (23-300)
[2022-11-13 15:58] LABS: ANA Screen, IFA Negative (.)
== END ==
PROVIDERS: Family Provider Family Medicine; PCP Family Medicine; Visit Provider Internal Medicine Gastroenterology
DX: R15.2 Fecal urgency (principal); R19.8 Other specified symptoms and signs involving the digestive system and abdomen; R43.9 Unspecified disturbances of smell and taste; R63.4 Abnormal weight loss; R74.8 Abnormal levels of other serum enzymes
CPT/HCPCS: 83690; 86038

== ENCOUNTER 2022-12-01 10:56 | Day surgery (SDC) | payer MEDICARE, OTHER, SELFPAY ==
[2021-12-04 15:38] VITALS: BMI 21.3
--- NOTE | 2022-12-01 | PATH_ITS ---
[facility] Accession Number: [id number] No. of containers..01 Tissue . 01 Material submitted: . body - RANDOM BIOPSIES . 01 Diagnosis: Random Colon, Biopsies: Colonic mucosa with no diagnostic abnormality. Negative for active, chronic, and microscopic colitis. Negative for dysplasia and malignancy. . [facility] 12/04/2022 1439 Local . 01 Electronically signed: . Jack Uribe MD, PhD, Pathologist NPI- [id number] . 01 Gross description: . RANDOM BIOPSIES: Received in formalin is 2 fragment(s) of hahn, soft tissue measuring 0.2 x 0.1 x 0.1 cm to 0.1 x 0.1 x 0.1 cm submitted entirely in 1 cassette(s) /[facility] 12/03/2022 1426 Local . 01 Pathologist provided ICD-10: R19.8 . 01 CPT . 535048 Specimen Comment: A courtesy copy of this report has been sent to [phone] Performed at: 01 [facility] [address] [place] [address], [place], [place] [id number] MD Anderson Choe MD Phone: [phone]
[2022-12-01] MEDS: LACTATED RINGERS 1,000 ML 100 ML IV (12:35)
[2022-12-01 13:03] VITALS: BP 147/70; PULSE 72; RESP 16; TEMP 36.1; O2SAT 100; BMI 21.2
--- NOTE | 2022-12-01 13:39 | P.HP_ITS ---
History of Present Illness History of Present Illness Date Patient Seen: 12/01/22 Time Patient Seen: 13:39 Chief complaint: [facility] [place]: Diarrhea. [facility] Medical History Aneurysmal dilatation (11/02/17) Bilateral nephrolithiasis Bladder prolapse Chicken pox Elevated parathyroid hormone Femoral acetabular impingement Fibroids Frequent UTI Gastric ulcer (~1986) Hearing loss (~2003) Heavy menstrual period (~1969) Hemangioma of liver Hemorrhoid Herniated nucleus pulposus, L4-5 Herpes (~2017) History of nephrolithiasis Hypercalciuria Hypertension Hypothyroidism (~2010) Incomplete right bundle branch block (RBBB) Kidney stones Liver cyst Migraine Palpitations Sacral dysfunction Scoliosis Shoulder pain (~2015) Skin cancer Vaginal atrophy Surgical History Anesthesia Cystocele with rectocele (~2017) H/O breast biopsy History of tonsillectomy History of vaginal hysterectomy Status post hysterectomy with oophorectomy (~1999) Family History Father Cancer Hearing impairment Mother Pneumonia Hx of migraines H/O thyroid disease Hearing impairment Brother Automobile accident Social History marital status: number of children: 2 household members: spouse Smoking Status: Never smoker alcohol intake: never Type(s) of exercise: walking frequency: 1-2 times per week Meds Home Medications and Allergies Home Medications Medication Instructions Recorded Confirmed Type MASSAGE THERAPY #1 ea 10/23/20 11/24/22 Rx latanoprost 0.005 % eye drops 1 drp ophthalmic (eye) DAILY 12/31/20 12/01/22 History levothyroxine 50 mcg tablet 50 mcg PO DAILY #90 tabs 06/19/22 12/01/22 Rx (Synthroid) B-complex with vitamin C (Super 1 cap PO DAILY 06/23/22 11/24/22 History B/C capsule) biotin 1,000 mcg chewable tablet 2,000 mcg PO DAILY 06/23/22 12/01/22 History estradiol 0.01% (0.1 mg/gram) See Rx Instructions .Route 09/08/22 12/01/22 Rx vaginal cream .COMPLEX #42.5 grams hydrochlorothiazide 12.5 mg capsule 12.5 mg PO DAILY #90 caps 11/11/22 12/01/22 Rx Allergies Allergy/AdvReac Type Severity Reaction Status Date / Time aspirin [ASPIRIN] Allergy Severe ANAPHALAXIS Verified 12/01/22 12:43 sulfamethoxazole Allergy Severe MOUTH Verified 12/01/22 12:43 [From BLISTERS Sulfamethoxazole-Trimethoprim] trimethoprim Allergy Severe MOUTH Verified 12/01/22 12:43 [From BLISTERS Sulfamethoxazole-Trimethoprim] doxycycline Allergy Intermediate Nausea Verified 12/01/22 12:43 cramp in calf metoprolol Allergy Intermediate FACE Verified 12/01/22 12:43 NUMBNESS nitrofurantoin Allergy Intermediate LEG Verified 12/01/22 12:43 NUMBNESS AND WEAKNESS/RESPIRATORY amoxicillin Allergy Unknown Verified 12/01/22 12:43 ciprofloxacin Allergy Unknown MOTHER Verified 12/01/22 12:43 SUFFERED DETACHED TENDON SO PATIENT REFUSES TO TAKE. Review of Systems Review of Systems ROS: Yes All systems reviewed with the patient and are negative except as otherwise documented Exam Vital Signs (past 8 hours): - 12/01/22 13:03 Temperature 96.9 F L Pulse Rate 72 Respiratory Rate 16 Blood Pressure 147/70 H Pulse Oximetry 100 Oxygen Delivery Method Room Air Oxygen Delivery Method Room Air Const General: cooperative HENMT Head: normal to inspection Eyes General: appearance normal, both eyes and all related structures Neck Neck: normal visual inspection Chest Chest: normal inspection of the chest Resp Effort & Inspection: normal respiratory effort Cardio Rate: regular rate GI Inspection: normal to inspection Skin General: no rashes or lesions noted Neuro General: patient alert and patient awake Extrem General: normal to inspection and no pedal edema Psych Appearance: grossly normal Assessment & Plan Assessment & Plan narrative: 72-year-old female with ongoing diarrhea. Diagnostic colonoscopy is pursued today.
--- NOTE | 2022-12-01 13:40 | PM.PREOP ---
Pre-operative Note Interval Note History & Physical reviewed/Exam performed by Physician: Yes Changes to H&P: No ASA Class (for procedural sedation): III
--- NOTE | 2022-12-01 14:47 | PM.OP.COLON ---
Operative Date/Time/Diagnoses Date of procedure: 12/01/22 Time of procedure: 14:48 Pre-op diagnosis: Diarrhea Post-op diagnosis: same Procedure & Clinicians Study performed: Colonoscopy with biopsies Same procedure as scheduled: Yes Indications: Diarrhea Surgeon: Chino Peña Procedure Notes SCOAP/Timeout: Done Procedure in detail: After the risks and benefits were explained, written and verbal informed consent was obtained. The patient was brought into the procedure room and placed into the left lateral decubitus position. Please see anesthesia notes for sedation details. Digital rectal examination was accomplished. The scope was introduced into the patient and advanced under direct visualization to the cecum as identified by the appendiceal orifice and ileocecal valve. The scope was slowly withdrawn to carefully examine the mucosa for any defects or lesions. Comprehensive imaging was accomplished throughout the rectum including the dentate line. The colon was decompressed, the scope was then removed from the patient who tolerated the procedure well. Bowel prep adequate Pediatric colonoscope Scope withdrawal time: 7 minutes Sedation minutes: 25 Complications: none Impression: There was some scant diverticulosis in the left colon. The patient had an extremely tortuous colon and navigation was very difficult. The terminal ileum was interrogated and appeared normal. There was no evidence of any macroscopic colitis. Random colon biopsies were taken for exclusion of microscopic colitis. The patient had grade 2 internal hemorrhoids. Endoscopic diagnosis 1. Twisty colon 2. Diverticulosis 3. Grade 2 hemorrhoids Post-procedure Plan for aftercare: 1. Await histopathology. 2. Follow up GI clinic. Disposition: PACU
[2022-12-01 14:50] VITALS: BP 108/65; PULSE 72; RESP 16; TEMP 37.1; O2SAT 97
[2022-12-01 14:55] VITALS: BP 118/72; PULSE 66; RESP 12; O2SAT 97
[2022-12-01 15:00] VITALS: BP 122/72; PULSE 63; RESP 14; TEMP 36.6; O2SAT 98
[2022-12-01 15:06] VITALS: BP 122/75; PULSE 61; RESP 16; TEMP 36.6; O2SAT 97
== END 2022-12-01 15:20 | disposition home or self-care (01) ==
PROVIDERS: Family Provider Family Medicine; PCP Family Medicine; Referring Provider Internal Medicine Gastroenterology; Visit Provider Internal Medicine Gastroenterology
PROC: 0DJD8ZZ Inspection of Lower Intestinal Tract, Via Natural or Artificial Opening Endoscopic (ICD-10-PCS; CPT 45378; principal; 2022-12-01 13:00)
DX: R19.7 Diarrhea, unspecified (principal); K57.30 Diverticulosis of large intestine without perforation or abscess without bleeding; K64.1 Second degree hemorrhoids
CPT/HCPCS: 45380; J2704

== ENCOUNTER 2022-12-16 14:23 | Outpatient (CLI) | payer MEDICARE, OTHER, SELFPAY ==
[2021-12-04 15:38] VITALS: BMI 21.3
[2022-12-16] VITALS (9 sets, daily range): BP systolic 127–176; BP diastolic 70–86; PULSE 66–73; RESP 15–22; TEMP 36.6; O2SAT 95–100
--- NOTE | 2022-12-16 14:25 | DI.RAD.S_ITS ---
PROCEDURE: PAIN L/S TRANSFORAMINAL INJECT INDICATIONS: SPONDYLOSIS COMPARISON: None. FINDINGS: Fluoroscopic spot filming was performed to verify placement of spinal needles at the left L4-L5 neural foramen level(s), as labeled on the films. Appropriate location(s) of the needle tip(s) was confirmed by injection of iodinated contrast. IMPRESSION: Access needle in the left L4-L5 neural foramen for transforaminal epidural steroid injection. Dictated by: Camilla Whitlock MD, PhD on 12/16/2022 at 16:03 Approved by: Camilla Whitlock MD, PhD on 12/16/2022 at 16:03
[2022-12-16] MEDS: MIDAZOLAM 2 MG/2 ML VIAL IV (15:23)
[2022-12-16] MEDS: IOPAMIDOL 15 ML VIAL 3 ML INJ (15:28)
[2022-12-16] MEDS: BETAMETHASONE 30 MG/5 ML MDV 6 MG INJ (15:29)
[2022-12-16] MEDS: DEXAMETHASONE 10 MG/ML VIAL 20 MG INJ (15:29)
[2022-12-16] MEDS: BUPIVACAINE 0.25% (PF) VIAL 2 ML INJ (15:29)
--- NOTE | 2022-12-16 15:39 | P.PCN_ITS ---
Date/Time/Diagnoses Date of procedure: 12/16/22 Time of procedure: 15:39 Pre-procedure diagnosis: 1. FORAMINAL STENOSIS WITH LE SYMPTOMS Post-procedure diagnosis: same Procedure Notes Procedure: 1. FLUOROSCOPICALLY GUIDED CONTRAST CONTROLLED TRANSFORAMINAL EPIDURAL STEROID INJECTION - LEFT L4/5 Indications: Lena is referred by Dr. Strong for treatment of Foraminal Stenosis with Left LE Symptoms Physician: Helio Hunt Total Fluoroscopy time (seconds): 11 Total sedation minutes: 12 Complications: none Procedure in detail & Post-procedure care: FINDINGS Foraminal Nerve Root Compression secondary to disc disease and facet hypertrophy DESCRIPTION OF PROCEDURE Following review of allergy and review of potential side effects and complications, including, but not necessarily limited to, infection, allergic reaction, local tissue breakdown, stroke, temporary or permanent nerve injury, paralysis, and possible , the patient indicated that the patient understood and agreed to proceed. An informed consent document was signed by the patient, witnessed by a nurse, and placed in the patient's chart. Additionally, other treatment options including medications, modalities, and physical therapy were reviewed with the patient. After review of previous anaesthesic history and IV conscious sedation the patient was deemed safe to proceed with today?s procedure with IV conscious sedation as ASA class II designation. Safety time-out was performed to confirm patient ID, procedure to be performed and site of procedure. IV sedation was accomplished with a combination of 2mg of Versed administered by the RN after DO order, titrated to patient comfort during the course of the procedure while the patient remained responsive to all verbal commands In the prone position following sterile prep and drape of the lumbar region, the left L4/5 posterior neuroforamen was identified fluoroscopically. The skin was anesthetized via a 25-gauge 1.5-inch needle with 1% lidocaine solution. At this point, a 25-gauge 3.5-inch spinal needle was atraumatically introduced and advanced under fluoroscopic guidance through the posterior left L4/5 neuroforamen to approximately the anterior aspect of the canal. Depth was confirmed on lateral view. Following negative aspiration, injection of approximately 1.5 cc of Isovue 200 under live fluoroscopy in the AP view confirmed excellent flow along the nerve root, into the epidural space without vascular or intrathecal uptake observed Radiological data, including multiple fluoroscopic views of the lumbosacral spine, reveal a spinal needle at the left L4/5 posterior neuroforamen. Subsequent views show flow of contrast material flowing superiorly and inferiorly along the nerve root confirming epidural flow. Subsequently, a test dose of 1.5 cc of 1% lidocaine solution was administered and patient was observed for two minutes for signs or symptoms of complications, including abdominal pain, shortness of breath, bilateral upper or lower extremity weakness, nausea and vomiting, prior to steroid injection. At this point, a total of 3cc or 20mg of dexamethasone and 6mg of betamethasone was injected without incident. The procedure tolerated the procedure well without signs or symptoms of complications prior to transfer to the recovery area continued monitoring without incident. The patient was then transferred to the recovery area where they were observed for an appropriate time after the injection. The patient reported a VAS score of 7 prior to the procedure and a post- procedure VAS of 0. POST OP INSTRUCTIONS The patient was provided a Pain Log to continue to record their response to the target-specific procedure prior to follow-up visit with their referring physician. Additionally, specific post-injection care instructions and a contact number to our office were provided if concerns arise regarding possible complications associated with the procedure are suspected.
== END 2022-12-16 15:58 | disposition home or self-care (01) ==
LOC: RAD 14:24
PROVIDERS: Family Provider Family Medicine; PCP Family Medicine; Referring Provider Physical Medicine & Rehabilitation; Visit Provider Physical Medicine & Rehabilitation
DX: M51.26 Other intervertebral disc displacement, lumbar region (principal); M51.16 Intervertebral disc disorders with radiculopathy, lumbar region
CPT/HCPCS: 64483; 99152; J0702; J1100; J2250; J3490

== ENCOUNTER → 2023-02-02 13:07 | Outpatient (CLI) | payer MEDICARE, OTHER, SELFPAY ==
[2021-12-04 15:38] VITALS: BMI 21.3
== END ==
PROVIDERS: Family Provider Family Medicine; PCP Family Medicine; Visit Provider Family Medicine
DX: R39.89 Other symptoms and signs involving the genitourinary system (principal)
CPT/HCPCS: 87086

== ENCOUNTER → 2023-05-14 09:27 | Outpatient (CLI) | payer MEDICARE, OTHER, SELFPAY ==
[2021-12-04 15:38] VITALS: BMI 21.3
[2023-05-14 19:43] LABS: Alanine Aminotransferase 26 IU/L (<35); Albumin 4.2 g/dL (3.5-5.0); Albumin Globulin Ratio 1.5 (1.0-2.8); Alkaline Phosphatase 95 U/L (38-126); Aspartate Aminotransferase 36 IU/L (14-36); BUN Creatinine Ratio 25.4 (6-22); Bilirubin Total 0.7 mg/dL (0.2-1.3); Blood Urea Nitrogen 17 mg/dL (7-17); Calcium 9.4 mg/dL (8.4-10.2); Carbon Dioxide 29 mmol/L (22-32); Chloride 102 mmol/L (98-107); Cholesterol 200 mg/dL (140-199); Estimated Glomerular Filt Rate > 60 mL/min (>60); Globulin 2.8 g/dL (1.7-4.1); Glucose 96 mg/dL (80-110); HDL Cholesterol 64 mg/dL (40-60); HEMOLYSIS 16 (0-50); LDL Cholesterol Calculated 109 mg/dL (<100); Sodium 137 mmol/L (137-145); Triglycerides 136 mg/dL (35-150)
[2023-05-14 19:51] LABS: Add Manual Diff / Slide Review NO; Basophils Absolute Auto 0 /uL (0-100); Basophils Percent Auto 0.6 % (0-2); Eosinophils Absolute Auto 100 /uL (0-450); Hematocrit 40.7 % (36-46); Hemoglobin 13.9 g/dL (12.0-16.0); Lymphocytes Absolute Auto 1200 /uL (1100-4500); Mean Corpuscular HGB Conc 34.1 % (30-36); Mean Corpuscular Hemoglobin 30.5 PG (26-34); Mean Corpuscular Volume 89.4 fL (80-100); Monocytes Absolute Auto 300 /uL (0-900); Monocytes Percent Auto 9.2 % (3-14); Neutrophils Absolute Auto 1900 /uL (1500-7000); Neutrophils Percent Auto 53.2 % (50-75); Platelet Count 228 X10^3/uL (150-400); Red Blood Cell Count 4.55 X10^6/uL (4.0-5.2); White Blood Cell Count 3.5 X10^3/uL (4.5-11.0)
[2023-05-14 20:00] LABS: Vitamin D 25 Hydroxy (D3) 40.7 ng/mL (30.0-100.0)
[2023-05-14 20:15] LABS: TSH w/ Reflex to FT4 4.08 uIU/mL (0.47-4.68)
[2023-05-14 20:29] LABS: Vitamin B12 697 pg/mL (239-931)
[2023-05-18 00:20] LABS: Zinc 89 ug/dL (44-115)
== END ==
PROVIDERS: Family Provider Family Medicine; PCP Family Medicine; Visit Provider Family Medicine
DX: K85.90 Acute pancreatitis without necrosis or infection, unspecified (principal); E03.9 Hypothyroidism, unspecified; Z87.19 Personal history of other diseases of the digestive system; R74.8 Abnormal levels of other serum enzymes; R43.0 Anosmia; M81.0 Age-related osteoporosis without current pathological fracture; E34.9 Endocrine disorder, unspecified; E04.1 Nontoxic single thyroid nodule; I10 Essential (primary) hypertension; R82.994 Hypercalciuria; K52.9 Noninfective gastroenteritis and colitis, unspecified; R43.2 Parageusia
CPT/HCPCS: 80053; 80061; 82306; 82607; 84443; 84630; 85025

== ENCOUNTER 2023-10-06 13:55 | Outpatient (CLI) | payer MEDICARE, OTHER, SELFPAY ==
[2021-12-04 15:38] VITALS: BMI 21.3
[2023-10-06] VITALS (9 sets, daily range): BP systolic 140–186; BP diastolic 68–98; PULSE 62–69; RESP 10–18; TEMP 37; O2SAT 95–99
--- NOTE | 2023-10-06 15:00 | DI.RAD.S_ITS ---
PROCEDURE: PAIN L/S TRANSFORAMINAL INJECT INDICATIONS: SPINAL STENOSIS COMPARISON: [facility], , PAIN L/S TRANSFORAMINAL INJECT, 12/16/2022, 15:27. FINDINGS: Fluoroscopic spot filming was performed to verify placement of spinal needles at the L5-S1 level(s), as labeled on the films. Appropriate location(s) of the needle tip(s) was confirmed by injection of iodinated contrast. IMPRESSION: L5-S1 needle and contrast localization. Dictated by: Ariana Olivares M.D. on 10/06/2023 at 23:04 Approved by: Ariana Olivares M.D. on 10/06/2023 at 23:05
[2023-10-06] MEDS: MIDAZOLAM 2 MG/2 ML VIAL IV (15:37)
[2023-10-06] MEDS: BUPIVACAINE 0.25% (PF) VIAL 2 ML INJ (15:40)
[2023-10-06] MEDS: BETAMETHASONE 30 MG/5 ML MDV 6 MG INJ (15:41)
[2023-10-06] MEDS: iopamidoL 15 ML VIAL 3 ML INJ (15:41)
[2023-10-06] MEDS: DEXAMETHASONE 10 MG/ML VIAL INJ (15:41)
--- NOTE | 2023-10-06 15:54 | P.PCN_ITS ---
Date/Time/Diagnoses Date of procedure: 10/06/23 Time of procedure: 15:54 Pre-procedure diagnosis: 1. FORAMINAL STENOSIS WITH LE SYMPTOMS Post-procedure diagnosis: same Procedure Notes Procedure: 1. FLUOROSCOPICALLY GUIDED CONTRAST CONTROLLED TRANSFORAMINAL EPIDURAL STEROID INJECTION - Left L5/S1 Indications: Lena is referred by Dr. Strong for treatment of Foraminal Stenosis with Left LE Symptoms Physician: Helio Hunt Total Fluoroscopy time (seconds): 12 Total sedation minutes: 12 Complications: none Procedure in detail & Post-procedure care: FINDINGS Foraminal Nerve Root Compression secondary to disc disease and facet hypertrophy DESCRIPTION OF PROCEDURE Following review of allergy and review of potential side effects and complications, including, but not necessarily limited to, infection, allergic reaction, local tissue breakdown, stroke, temporary or permanent nerve injury, paralysis, and possible , the patient indicated that the patient understood and agreed to proceed. An informed consent document was signed by the patient, witnessed by a nurse, and placed in the patient's chart. Additionally, other treatment options including medications, modalities, and physical therapy were reviewed with the patient. After review of previous anaesthesic history and IV conscious sedation the patient was deemed safe to proceed with today?s procedure with IV conscious sedation as ASA class II designation. Safety time-out was performed to confirm patient ID, procedure to be performed and site of procedure. IV sedation was accomplished with a combination of 2mg of Versed was administered by the RN after DO order, titrated to patient comfort during the course of the procedure while the patient remained responsive to all verbal commands In the prone position following sterile prep and drape of the lumbar region, the Left L5/S1 posterior neuroforamen was identified fluoroscopically. The skin was anesthetized via a 25-gauge 1.5-inch needle with 1% lidocaine solution. At this point, a 25-gauge 3.5-inch spinal needle was atraumatically introduced and advanced under fluoroscopic guidance through the posterior Left L5/S1 neuroforamen to approximately the anterior aspect of the canal. Depth was confirmed on lateral view. Following negative aspiration, injection of approximately 1.5 cc of Isovue 200 under live fluoroscopy in the AP view confirmed excellent flow along the nerve root, into the epidural space without vascular or intrathecal uptake observed Radiological data, including multiple fluoroscopic views of the lumbosacral spine, reveal a spinal needle at the Left L5/S1 posterior neuroforamen. Subsequent views show flow of contrast material flowing superiorly and inferiorly along the nerve root confirming epidural flow. Subsequently, a test dose of 1.5 cc of 1% lidocaine solution was administered and patient was observed for two minutes for signs or symptoms of complications, including abdominal pain, shortness of breath, bilateral upper or lower extremity weakness, nausea and vomiting, prior to steroid injection. At this point, a total of 2cc or 10mg of dexamethasone and 6mg of betamethasone was injected without incident. The procedure tolerated the procedure well without signs or symptoms of complications prior to transfer to the recovery area continued monitoring without incident. The patient was then transferred to the recovery area where they were observed for an appropriate time after the injection. The patient reported a VAS score of 7 prior to the procedure and a post-procedure VAS of 0. POST OP INSTRUCTIONS The patient was provided a Pain Log to continue to record their response to the target-specific procedure prior to follow-up visit with their referring physic curt. Additionally, specific post-injection care instructions and a contact number to our office were provided if concerns arise regarding possible complications associated with the procedure are suspected.
== END 2023-10-06 16:15 | disposition home or self-care (01) ==
PROVIDERS: Family Provider Family Medicine; PCP Family Medicine; Referring Provider Physical Medicine & Rehabilitation; Visit Provider Physical Medicine & Rehabilitation
DX: M48.07 Spinal stenosis, lumbosacral region (principal); M51.17 Intervertebral disc disorders with radiculopathy, lumbosacral region; M47.27 Other spondylosis with radiculopathy, lumbosacral region
CPT/HCPCS: 64483; 99152; J0702; J1100; J2250; J3490

== ENCOUNTER → 2023-10-08 09:56 | Outpatient (CLI) | payer MEDICARE, OTHER, SELFPAY ==
[2021-12-04 15:38] VITALS: BMI 21.3
[2023-10-08 18:56] LABS: Add Manual Diff / Slide Review NO; Basophils Absolute Auto 0 /uL (0-100); Basophils Percent Auto 0.2 % (0-2); Eosinophils Absolute Auto 0 /uL (0-450); Hematocrit 39.3 % (36-46); Hemoglobin 13.3 g/dL (12.0-16.0); Lymphocytes Absolute Auto 1200 /uL (1100-4500); Lymphocytes Percent Auto 13.7 % (25-40); Mean Corpuscular HGB Conc 33.7 % (30-36); Mean Corpuscular Hemoglobin 30.5 PG (26-34); Mean Corpuscular Volume 90.4 fL (80-100); Monocytes Absolute Auto 600 /uL (0-900); Monocytes Percent Auto 6.1 % (3-14); Neutrophils Absolute Auto 7300 /uL (1500-7000); Platelet Count 248 X10^3/uL (150-400); Red Blood Cell Count 4.35 X10^6/uL (4.0-5.2); Red Cell Distribution Width 13.2 % (11.6-14.8); White Blood Cell Count 9.1 X10^3/uL (4.5-11.0)
[2023-10-08 19:09] LABS: Alanine Aminotransferase 27 IU/L (<35); Albumin 4.1 g/dL (3.5-5.0); Albumin Globulin Ratio 1.5 (1.0-2.8); Alkaline Phosphatase 96 U/L (38-126); Amylase 66 U/L (30-110); Aspartate Aminotransferase 36 IU/L (14-36); Bilirubin Total 1.1 mg/dL (0.2-1.3); Blood Urea Nitrogen 24 mg/dL (7-17); Calcium 9.4 mg/dL (8.4-10.2); Carbon Dioxide 30 mmol/L (22-32); Chloride 104 mmol/L (98-107); Cholesterol 212 mg/dL (140-199); Estimated Glomerular Filt Rate > 60 mL/min (>60); Globulin 2.7 g/dL (1.7-4.1); Glucose 98 mg/dL (80-110); HDL Cholesterol 67 mg/dL (40-60); HEMOLYSIS < 15 (0-50); LDL Cholesterol Calculated 120 mg/dL (<100); Lipase 178 U/L (23-300); Potassium 4.2 mmol/L (3.4-5.1); Sodium 139 mmol/L (137-145); Total Protein 6.8 g/dL (6.3-8.2); Triglycerides 123 mg/dL (35-150)
== END ==
PROVIDERS: Family Provider Family Medicine; PCP Family Medicine; Visit Provider Family Medicine
DX: R74.8 Abnormal levels of other serum enzymes (principal); E03.9 Hypothyroidism, unspecified; M81.0 Age-related osteoporosis without current pathological fracture
CPT/HCPCS: 80053; 80061; 82150; 83690; 85025

== ENCOUNTER 2024-01-19 11:57 | Outpatient (CLI) | payer MEDICARE, OTHER, SELFPAY ==
[2021-12-04 15:38] VITALS: BMI 21.3
[2024-01-19] VITALS (8 sets, daily range): BP systolic 114–183; BP diastolic 58–89; PULSE 60–67; RESP 13–20; TEMP 36.7; O2SAT 95–99
--- NOTE | 2024-01-19 13:45 | DI.RAD.S_ITS ---
PROCEDURE: PAIN L/S TRANSFORAMINAL INJECT INDICATIONS: Left L4-5 and L5-S1 transforaminal SAMANTHA COMPARISON: [facility], XA, PAIN L/S TRANSFORAMINAL INJECT, 10/06/2023, 15:40. FINDINGS: Fluoroscopic spot filming was performed to verify placement of spinal needles at the L4-5, L5-S1 level(s), as labeled on the films. Appropriate location(s) of the needle tip(s) was confirmed by injection of iodinated contrast. IMPRESSION: Contrast needle placement overlying L4-5, L5-S1. Dictated by: Ariana Olivares M.D. on 01/19/2024 at 16:08 Approved by: Ariana Olivares M.D. on 01/19/2024 at 16:08
[2024-01-19] MEDS: MIDAZOLAM 2 MG/2 ML VIAL IV (14:27)
[2024-01-19] MEDS: iopamidoL 15 ML VIAL 3 ML INJ (14:33)
[2024-01-19] MEDS: BUPIVACAINE 0.25% (PF) VIAL 5 ML INJ (14:33)
[2024-01-19] MEDS: DEXAMETHASONE 10 MG/ML VIAL 20 MG INJ (14:34)
[2024-01-19] MEDS: BETAMETHASONE 30 MG/5 ML MDV 12 MG INJ (14:35)
--- NOTE | 2024-01-19 14:45 | P.PCN_ITS ---
Date/Time/Diagnoses Date of procedure: 01/19/24 Time of procedure: 14:45 Pre-procedure diagnosis: 1. FORAMINAL STENOSIS WITH LE SYMPTOMS Post-procedure diagnosis: same Procedure Notes Procedure: 1. FLUOROSCOPICALLY GUIDED CONTRAST CONTROLLED TRANSFORAMINAL EPIDURAL STEROID INJECTION - LEFT L4/5 Indications: Lena is referred by Dr. Strong for treatment of Foraminal Stenosis with Left LE Symptoms Physician: Helio Hunt Total Fluoroscopy time (seconds): 13 Total sedation minutes: 14 Complications: none Procedure in detail & Post-procedure care: FINDINGS Foraminal Nerve Root Compression secondary to disc disease and facet hypertrophy DESCRIPTION OF PROCEDURE Following review of allergy and review of potential side effects and complications, including, but not necessarily limited to, infection, allergic reaction, local tissue breakdown, stroke, temporary or permanent nerve injury, paralysis, and possible , the patient indicated that the patient understood and agreed to proceed. An informed consent document was signed by the patient, witnessed by a nurse, and placed in the patient's chart. Additionally, other treatment options including medications, modalities, and physical therapy were reviewed with the patient. After review of previous anaesthesic history and IV conscious sedation the patient was deemed safe to proceed with today?s procedure with IV conscious sedation as ASA class II designation. Safety time-out was performed to confirm patient ID, procedure to be performed and site of procedure. IV sedation was accomplished with a combination of 2mg of Versed administered by the RN after DO order, titrated to patient comfort during the course of the procedure while the patient remained responsive to all verbal commands In the prone position following sterile prep and drape of the lumbar region, the left L4/5 posterior neuroforamen was identified fluoroscopically. The skin was anesthetized via a 25-gauge 1.5-inch needle with 1% lidocaine solution. At this point, a 25-gauge 3.5-inch spinal needle was atraumatically introduced and advanced under fluoroscopic guidance through the posterior left L4/5 neuroforamen to approximately the anterior aspect of the canal. Depth was confirmed on lateral view. Following negative aspiration, injection of approximately 1.5 cc of Isovue 200 under live fluoroscopy in the AP view confirmed excellent flow along the nerve root, into the epidural space without vascular or intrathecal uptake observed Radiological data, including multiple fluoroscopic views of the lumbosacral spine, reveal a spinal needle at the left L4/5 posterior neuroforamen. Subsequent views show flow of contrast material flowing superiorly and inferiorly along the nerve root confirming epidural flow. Subsequently, a test dose of 1.5 cc of 1% lidocaine solution was administered and patient was observed for two minutes for signs or symptoms of complications, including abdominal pain, shortness of breath, bilateral upper or lower extremity weakness, nausea and vomiting, prior to steroid injection. At this point, a total of 2cc or 10mg of dexamethasone and 6mg of betamethasone was injected without incident. The procedure tolerated the procedure well without signs or symptoms of complications prior to transfer to the recovery area continued monitoring without incident. The patient was then transferred to the recovery area where they were observed for an appropriate time after the injection. The patient reported a VAS score of 7 prior to the procedure and a post- procedure VAS of 1. POST OP INSTRUCTIONS The patient was provided a Pain Log to continue to record their response to the target-specific procedure prior to follow-up visit with their referring physician. Additionally, specific post-injection care instructions and a contact number to our office were provided if concerns arise regarding possible complications associated with the procedure are suspected.
--- NOTE | 2024-01-19 14:46 | P.PCN_ITS ---
Date/Time/Diagnoses Date of procedure: 01/19/24 Time of procedure: 14:46 Pre-procedure diagnosis: 1. FORAMINAL STENOSIS WITH LE SYMPTOMS Post-procedure diagnosis: same Procedure Notes Procedure: 1. FLUOROSCOPICALLY GUIDED CONTRAST CONTROLLED TRANSFORAMINAL EPIDURAL STEROID INJECTION - Left L5/S1 Indications: Lena is referred by Dr. Srtong for treatment of Foraminal Stenosis with Left LE Symptoms Physician: Helio Hunt Total Fluoroscopy time (seconds): 13 Total sedation minutes: 14 Complications: none Procedure in detail & Post-procedure care: FINDINGS Foraminal Nerve Root Compression secondary to disc disease and facet hypertrophy DESCRIPTION OF PROCEDURE Following review of allergy and review of potential side effects and complications, including, but not necessarily limited to, infection, allergic reaction, local tissue breakdown, stroke, temporary or permanent nerve injury, paralysis, and possible , the patient indicated that the patient understood and agreed to proceed. An informed consent document was signed by the patient, witnessed by a nurse, and placed in the patient's chart. Additionally, other treatment options including medications, modalities, and physical therapy were reviewed with the patient. After review of previous anaesthesic history and IV conscious sedation the patient was deemed safe to proceed with today?s procedure with IV conscious sedation as ASA class II designation. Safety time-out was performed to confirm patient ID, procedure to be performed and site of procedure. IV sedation was accomplished with a combination of 2mg of Versed was administered by the RN after DO order, titrated to patient comfort during the course of the procedure while the patient remained responsive to all verbal commands In the prone position following sterile prep and drape of the lumbar region, the Left L5/S1 posterior neuroforamen was identified fluoroscopically. The skin was anesthetized via a 25-gauge 1.5-inch needle with 1% lidocaine solution. At this point, a 25-gauge 3.5-inch spinal needle was atraumatically introduced and advanced under fluoroscopic guidance through the posterior Left L5/S1 neuroforamen to approximately the anterior aspect of the canal. Depth was confirmed on lateral view. Following negative aspiration, injection of approximately 1.5 cc of Isovue 200 under live fluoroscopy in the AP view confirmed excellent flow along the nerve root, into the epidural space without vascular or intrathecal uptake observed Radiological data, including multiple fluoroscopic views of the lumbosacral spine, reveal a spinal needle at the Left L5/S1 posterior neuroforamen. Subsequent views show flow of contrast material flowing superiorly and inferiorly along the nerve root confirming epidural flow. Subsequently, a test dose of 1.5 cc of 1% lidocaine solution was administered and patient was observed for two minutes for signs or symptoms of complications, including abdominal pain, shortness of breath, bilateral upper or lower extremity weakness, nausea and vomiting, prior to steroid injection. At this point, a total of 2cc or 10mg of dexamethasone and 6mg of betamethasone was injected without incident. The procedure tolerated the procedure well without signs or symptoms of complications prior to transfer to the recovery area continued monitoring without incident. The patient was then transferred to the recovery area where they were observed for an appropriate time after the injection. The patient reported a VAS score of 7 prior to the procedure and a post-procedure VAS of 0. POST OP INSTRUCTIONS The patient was provided a Pain Log to continue to record their response to the target-specific procedure prior to follow-up visit with their referring physic curt. Additionally, specific post-injection care instructions and a contact number to our office were provided if concerns arise regarding possible complications associated with the procedure are suspected.
== END 2024-01-19 15:00 | disposition home or self-care (01) ==
LOC: RAD 11:58
PROVIDERS: Family Provider Family Medicine; PCP Family Medicine; Referring Provider Physical Medicine & Rehabilitation; Visit Provider Physical Medicine & Rehabilitation
DX: M48.061 Spinal stenosis, lumbar region without neurogenic claudication (principal); M47.26 Other spondylosis with radiculopathy, lumbar region; M48.07 Spinal stenosis, lumbosacral region; M51.17 Intervertebral disc disorders with radiculopathy, lumbosacral region; M47.27 Other spondylosis with radiculopathy, lumbosacral region; M51.16 Intervertebral disc disorders with radiculopathy, lumbar region
CPT/HCPCS: 64483; 64484; 99152; J0702; J1100; J2250; J3490

== ENCOUNTER → 2024-04-14 12:56 | Outpatient (CLI) | payer MEDICARE, OTHER, SELFPAY ==
[2021-12-04 15:38] VITALS: BMI 21.3
[2024-04-14 19:52] LABS: Add Manual Diff / Slide Review NO; Basophils Absolute Auto 0 /uL (0-100); Basophils Percent Auto 1.1 % (0-2); Eosinophils Absolute Auto 200 /uL (0-450); Eosinophils Percent Auto 3.8 % (2-4); Hematocrit 39.6 % (36-46); Hemoglobin 13.5 g/dL (12.0-16.0); Lymphocytes Absolute Auto 1200 /uL (1100-4500); Lymphocytes Percent Auto 29.3 % (25-40); Mean Corpuscular HGB Conc 34.1 % (30-36); Mean Corpuscular Hemoglobin 31.2 PG (26-34); Mean Corpuscular Volume 91.3 fL (80-100); Monocytes Absolute Auto 400 /uL (0-900); Monocytes Percent Auto 9.8 % (3-14); Neutrophils Absolute Auto 2300 /uL (1500-7000); Platelet Count 223 X10^3/uL (150-400); Red Blood Cell Count 4.33 X10^6/uL (4.0-5.2); Red Cell Distribution Width 12.5 % (11.6-14.8)
[2024-04-14 20:00] LABS: Alanine Aminotransferase 31 IU/L (<35); Albumin 3.8 g/dL (3.5-5.0); Albumin Globulin Ratio 1.5 (1.0-2.8); Alkaline Phosphatase 87 U/L (38-126); Aspartate Aminotransferase 39 IU/L (14-36); BUN Creatinine Ratio 34.8 (6-22); Bilirubin Total 0.6 mg/dL (0.2-1.3); Blood Urea Nitrogen 24 mg/dL (7-17); Calcium 9.5 mg/dL (8.4-10.2); Carbon Dioxide 30 mmol/L (22-32); Chloride 104 mmol/L (98-107); Estimated Glomerular Filt Rate > 60 mL/min (>60); Globulin 2.5 g/dL (1.7-4.1); Glucose 116 mg/dL (80-110); HEMOLYSIS < 15 (0-50); Potassium 3.8 mmol/L (3.4-5.1); Sodium 138 mmol/L (137-145); Total Protein 6.3 g/dL (6.3-8.2)
[2024-04-14 20:27] LABS: TSH w/ Reflex to FT4 1.75 uIU/mL (0.47-4.68)
== END ==
PROVIDERS: Family Provider Family Medicine; PCP Family Medicine; Visit Provider Family Medicine
DX: E03.9 Hypothyroidism, unspecified (principal); R43.2 Parageusia; R05.9 Cough, unspecified; I10 Essential (primary) hypertension; R43.0 Anosmia; E04.1 Nontoxic single thyroid nodule; D72.819 Decreased white blood cell count, unspecified; R74.8 Abnormal levels of other serum enzymes
CPT/HCPCS: 80053; 84443; 85025

== ENCOUNTER → 2024-08-19 10:52 | Outpatient (CLI) | payer MEDICARE, OTHER, SELFPAY ==
[2021-12-04 15:38] VITALS: BMI 21.3
--- NOTE | 2024-08-19 10:54 | DI.MRI.S_ITS ---
PROCEDURE: MR LUMBAR SPINE WO CON INDICATIONS: Lumbar radiculopathy TECHNIQUE: Noncontrast sagittal T1 spin echo and T2 fast echo, sagittal STIR, and T2 fast spin echo through the lumbar spine. In cases with scoliosis, additional coronal T2 fast spin echo may be performed. COMPARISON: [facility], MR, MR LUMBAR SPINE WO CON, 01/17/2021, 15:47. FINDINGS: Image quality: Excellent. Alignment and Curvature: Levo scoliotic curvature of the lumbar spine. Bone Marrow: Marrow is of normal overall signal. No acute vertebral body compression fractures. Spinal Cord: Conus medullaris terminates at the L1 level. Visualized cord demonstrates normal signal and size. Paraspinous Soft Tissues: No paravertebral masses. T12-L1: Normal appearance. L1-L2: Mild disc desiccation. No central canal or neural foraminal stenosis. L2-L3: Disc desiccation and minimal disc bulge. Facet arthropathy. No central canal or neural foraminal stenosis. L3-L4: Disc desiccation and mild height loss. Posterior disc bulge. Facet arthropathy and thickening of ligamentum flavum. Mild central canal stenosis. Moderate left and mild right neural foraminal stenosis is similar to prior. L4-L5: Disc desiccation. Minimal disc bulge. Facet arthropathy and thickening of ligamentum flavum. Posterior annular tear. Mild central canal stenosis. Mild left and no right neural foraminal stenosis is stable. L5-S1: Facet arthropathy. No central canal or neural foraminal stenosis. IMPRESSION: 1. Multilevel degenerative changes of the lumbar spine with levo scoliotic curvature are similar appearance to prior. 2. Mild central canal stenosis at L3-L4 and L4-5. 3. Moderate left neural foraminal stenosis at L3-L4. Dictated by: Andrew Field M.D. on 08/19/2024 at 19:19 Approved by: Andrew Field M.D. on 08/19/2024 at 19:23
--- NOTE | 2024-08-19 10:54 | DI.MRI.S_ITS ---
PROCEDURE: MR CERVICAL SPINE WO CON INDICATIONS: Cervical radicular TECHNIQUE: Noncontrast sagittal T1 spin echo and T2 fast spin echo, sagittal STIR, foraminal oblique sagittal T2 fast spin echo, and axial gradient echo or T2 fast spin echo through the cervical spine. COMPARISON: None. FINDINGS: Image quality: Excellent. Alignment and Curvature: Straightening of the normal cervical lordosis. Bone Marrow: Marrow demonstrates normal overall signal. Spinal Cord: Visualized spinal cord has normal size and signal. No cerebellar tonsillar herniation. Paraspinous Soft Tissues: No paravertebral masses. Prevertebral soft tissues are normal in thickness. C2-C3: Disc desiccation. No central canal or neural foraminal stenosis. C3-C4: Disc desiccation. No central canal or neural foraminal stenosis. C4-C5: Disc desiccation. Facet and uncovertebral arthropathy. No central canal stenosis. Mild bilateral neural foraminal stenosis. C5-C6: Disc desiccation and moderate height loss. Posterior disc osteophyte complex. Facet and uncovertebral arthropathy. Moderate central canal stenosis. At least moderate bilateral neural foraminal stenosis. C6-C7: Disc desiccation. Posterior disc osteophyte complex. Facet and uncovertebral arthropathy. Mild central canal stenosis. Mild bilateral neural foraminal stenosis. C7-T1: No central canal or neural foraminal stenosis. IMPRESSION: 1. Multilevel degenerative changes of the cervical spine, most pronounced at C5-C6. 2. Moderate central canal stenosis at C5-C6. 3. At least moderate bilateral neural foraminal stenosis C5-C6. Mild multilevel neural foraminal stenosis at other levels. Dictated by: Andrew Field M.D. on 08/19/2024 at 19:16 Approved by: Andrew Field M.D. on 08/19/2024 at 19:19
== END ==
PROVIDERS: Family Provider Family Medicine; PCP Family Medicine; Referring Provider Physical Medicine & Rehabilitation; Visit Provider Physical Medicine & Rehabilitation
DX: M54.12 Radiculopathy, cervical region (principal); M51.26 Other intervertebral disc displacement, lumbar region; M51.369 Other intervertebral disc degeneration, lumbar region without mention of lumbar back pain or lower extremity pain; M48.061 Spinal stenosis, lumbar region without neurogenic claudication; M50.322 Other cervical disc degeneration at C5-C6 level; M48.02 Spinal stenosis, cervical region
CPT/HCPCS: 72141; 72148

== ENCOUNTER 2024-10-06 12:20 | Outpatient (CLI) | payer MEDICARE, OTHER, SELFPAY ==
[2021-12-04 15:38] VITALS: BMI 21.3
[2024-10-06] VITALS (8 sets, daily range): BP systolic 132–173; BP diastolic 66–79; PULSE 60–68; RESP 14–17; TEMP 37.1; O2SAT 97–100
[2024-10-06] MEDS: MIDAZOLAM 2 MG/2 ML VIAL IV (14:05)
[2024-10-06] MEDS: DEXAMETHASONE 10 MG/ML VIAL 20 MG INJ (14:11)
[2024-10-06] MEDS: BUPIVACAINE 0.25% (PF) VIAL 2 ML INJ (14:11)
[2024-10-06] MEDS: BETAMETHASONE 30 MG/5 ML MDV 12 MG INJ (14:13)
[2024-10-06] MEDS: iopamidoL 15 ML VIAL 3 ML INJ (14:13)
--- NOTE | 2024-10-06 14:22 | PM.PROC.IR.1 ---
Date/Time/Diagnoses Date of procedure: 10/06/24 Time of procedure: 14:22 Pre-procedure diagnosis: 1. FORAMINAL STENOSIS WITH LE SYMPTOMS Post-procedure diagnosis: same Procedure Notes Procedure: 1. FLUOROSCOPICALLY GUIDED CONTRAST CONTROLLED TRANSFORAMINAL EPIDURAL STEROID INJECTION - LEFT L4/5 Indications: Lena is referred by Dr. Strong for treatment of Foraminal Stenosis with Left LE Symptoms Physician: Helio Hunt Total Fluoroscopy time (seconds): 9 Total sedation minutes: 12 Complications: none Procedure in detail & Post-procedure care: FINDINGS Foraminal Nerve Root Compression secondary to disc disease and facet hypertrophy DESCRIPTION OF PROCEDURE Following review of allergy and review of potential side effects and complications, including, but not necessarily limited to, infection, allergic reaction, local tissue breakdown, stroke, temporary or permanent nerve injury, paralysis, and possible , the patient indicated that the patient understood and agreed to proceed. An informed consent document was signed by the patient, witnessed by a nurse, and placed in the patient's chart. Additionally, other treatment options including medications, modalities, and physical therapy were reviewed with the patient. After review of previous anaesthesic history and IV conscious sedation the patient was deemed safe to proceed with today?s procedure with IV conscious sedation as ASA class II designation. Safety time-out was performed to confirm patient ID, procedure to be performed and site of procedure. IV sedation was accomplished with a combination of 2mg of Versed administered by the RN after DO order, titrated to patient comfort during the course of the procedure while the patient remained responsive to all verbal commands In the prone position following sterile prep and drape of the lumbar region, the left L4/5 posterior neuroforamen was identified fluoroscopically. The skin was anesthetized via a 25-gauge 1.5-inch needle with 1% lidocaine solution. At this point, a 25-gauge 3.5-inch spinal needle was atraumatically introduced and advanced under fluoroscopic guidance through the posterior left L4/5 neuroforamen to approximately the anterior aspect of the canal. Depth was confirmed on lateral view. Following negative aspiration, injection of approximately 1.5 cc of Isovue 200 under live fluoroscopy in the AP view confirmed excellent flow along the nerve root, into the epidural space without vascular or intrathecal uptake observed Radiological data, including multiple fluoroscopic views of the lumbosacral spine, reveal a spinal needle at the left L4/5 posterior neuroforamen. Subsequent views show flow of contrast material flowing superiorly and inferiorly along the nerve root confirming epidural flow. Subsequently, a test dose of 1.5 cc of 1% lidocaine solution was administered and patient was observed for two minutes for signs or symptoms of complications, including abdominal pain, shortness of breath, bilateral upper or lower extremity weakness, nausea and vomiting, prior to steroid injection. At this point, a total of 2cc or 10mg of dexamethasone and 6mg of betamethasone was injected without incident. The procedure tolerated the procedure well without signs or symptoms of complications prior to transfer to the recovery area continued monitoring without incident. The patient was then transferred to the recovery area where they were observed for an appropriate time after the injection. The patient reported a VAS score of 7 prior to the procedure and a post-procedure VAS of 0. POST OP INSTRUCTIONS The patient was provided a Pain Log to continue to record their response to the target-specific procedure prior to follow-up visit with their referring physician. Additionally, specific post-injection care instructions and a contact number to our office were provided if concerns arise regarding possible complications associated with the procedure are suspected.
--- NOTE | 2024-10-06 14:23 | PM.PROC.IR.1 ---
Date/Time/Diagnoses Date of procedure: 10/06/24 Time of procedure: 14:23 Pre-procedure diagnosis: 1. FORAMINAL STENOSIS WITH LE SYMPTOMS Post-procedure diagnosis: same Procedure Notes Procedure: 1. FLUOROSCOPICALLY GUIDED CONTRAST CONTROLLED TRANSFORAMINAL EPIDURAL STEROID INJECTION - LEFT L3/4 TFESI Indications: Lena is referred by Dr. Strong for treatment of Foraminal Stenosis with left LE Symptoms Physician: Helio Hunt Total Fluoroscopy time (seconds): 6 Total sedation minutes: 12 Complications: none Procedure in detail & Post-procedure care: FINDINGS Foraminal Nerve Root Compression secondary to disc disease and facet hypertrophy DESCRIPTION OF PROCEDURE Following review of allergy and review of potential side effects and complications, including, but not necessarily limited to, infection, allergic reaction, local tissue breakdown, stroke, temporary or permanent nerve injury, paralysis, and possible , the patient indicated that the patient understood and agreed to proceed. An informed consent document was signed by the patient, witnessed by a nurse, and placed in the patient's chart. Additionally, other treatment options including medications, modalities, and physical therapy were reviewed with the patient. After review of previous anaesthesic history and IV conscious sedation the patient was deemed safe to proceed with today?s procedure with IV conscious sedation as ASA class II designation. Safety time-out was performed to confirm patient ID, procedure to be performed and site of procedure. IV sedation was accomplished with a combination of 2mg of Versed was administered by the RN after DO order, titrated to patient comfort during the course of the procedure while the patient remained responsive to all verbal commands In the prone position following sterile prep and drape of the lumbar region, the left L3/4 posterior neuroforamen was identified fluoroscopically. The skin was anesthetized via a 25-gauge 1.5-inch needle with 1% lidocaine solution. At this point, a 25-gauge 3.5-inch spinal needle was atraumatically introduced and advanced under fluoroscopic guidance through the posterior left L3/4 neuroforamen to approximately the anterior aspect of the canal. Depth was confirmed on lateral view. Following negative aspiration, injection of approximately 1.5 cc of Isovue 200 under live fluoroscopy in the AP view confirmed excellent flow along the nerve root, into the epidural space without vascular or intrathecal uptake observed Radiological data, including multiple fluoroscopic views of the lumbosacral spine, reveal a spinal needle at the left L3/4 posterior neuroforamen. Subsequent views show flow of contrast material flowing superiorly and inferiorly along the nerve root confirming epidural flow. Subsequently, a test dose of 1.5cc of 1% lidocaine solution was administered and patient was observed for two minutes for signs or symptoms of complications, including abdominal pain, shortness of breath, bilateral upper or lower extremity weakness, nausea and vomiting, prior to steroid injection. At this point, a total of 2cc or 10mg of dexamethasone and 6mg betamethasone was injected without incident. The patient tolerated the procedure well without signs or symptoms of complications prior to transfer to the recovery area continued monitoring without incident. The patient was then transferred to the recovery area where they were observed for an appropriate time after the injection. The patient reported a VAS score of 7 prior to the procedure and a post-procedure VAS of 0. POST OP INSTRUCTIONS The patient was provided a Pain Log to continue to record their response to the target-specific procedure prior to follow-up visit with their referring physician. Additionally, specific post-injection care instructions and a contact number to our office were provided if concerns arise regarding possible complications associated with the procedure are suspected.
== END 2024-10-06 14:38 | disposition home or self-care (01) ==
PROVIDERS: Family Provider Family Medicine; PCP Family Medicine; Referring Provider Physical Medicine & Rehabilitation; Visit Provider Physical Medicine & Rehabilitation
DX: M48.061 Spinal stenosis, lumbar region without neurogenic claudication (principal); M51.16 Intervertebral disc disorders with radiculopathy, lumbar region; M47.26 Other spondylosis with radiculopathy, lumbar region
CPT/HCPCS: 64483; 64484; 99152; J0702; J1100; J2250; J3490

== ENCOUNTER 2024-12-08 08:45 | Outpatient (CLI) | payer MEDICARE, OTHER, SELFPAY ==
[2021-12-04 15:38] VITALS: BMI 21.3
[2024-12-08] VITALS (9 sets, daily range): BP systolic 132–166; BP diastolic 56–77; PULSE 63–69; RESP 14–16; TEMP 36.9; O2SAT 95–98
[2024-12-08] MEDS: MIDAZOLAM 2 MG/2 ML VIAL IV (10:08)
[2024-12-08] MEDS: iopamidoL 15 ML VIAL 3 ML INJ (10:12)
[2024-12-08] MEDS: DEXAMETHASONE 10 MG/ML VIAL 20 MG INJ (10:12)
[2024-12-08] MEDS: BUPIVACAINE 0.25% (PF) VIAL 2 ML INJ (10:13)
--- NOTE | 2024-12-08 10:25 | P.PCN_ITS ---
Date/Time/Diagnoses Date of procedure: 12/21/24 Time of procedure: 10:25 Pre-procedure diagnosis: 1. CERVICAL STENOSIS, 2. CERVICAL HNP WITH UPPER EXTREMITY RADICULAR FEATURES Post-procedure diagnosis: same Procedure Notes Procedure: 1. FLUORSCOPICALLY GUIDED CONTRAST CONTROLLED INTERLAMINAR EPIDURAL STEROID INJECTION - C6/7 TL SAMANTHA Indications: Lena is referred by Dr. Strong for treatment of Cervical HNP with Upper Extremity Paresthesias. Physician: Helio Hunt Total Fluoroscopy time (seconds): 25 Total sedation minutes: 15 Complications: none Procedure in detail & Post-procedure care: FINDINGS Cervical Stenosis due to disc deterioration and nerve root irritation and nerve root irritation DESCRIPTION OF PROCEDURE Fluoroscopically guided, contrast-controlled C6/7 translaminar epidural steroid injection with conscious sedation. Following review of allergy and review of potential side effects and complications, including, but not necessarily limited to, infection, allergic reaction, local tissue breakdown, temporary as well as permanent nerve injury, stroke, paralysis, and possible , the patient indicated that patient understood and agreed to proceed. An informed consent document was signed by the patient, witnessed by a nurse, and placed in the patient's chart. Additionally, other treatment options including modalities, medications, and physical therapy were reviewed with the patient. After review of previous anaesthesic history and IV conscious sedation the patient was deemed safe to proceed with today?s procedure with IV conscious sedation as ASA class II designation. Safety time-out was performed to confirm patient ID, procedure to be performed and site of procedure. IV sedation was accomplished with a combination of 2mg of Versed administered by the RN after DO order, titrated to patient comfort during the course of the procedure while the patient remained responsive to all verbal commands. In the prone position, following sterile prep and drape of the cervical region, the C6/7 translaminar space was identified fluoroscopically. The skin was anesthetized via a 25-gauge 1.5-inch needle with 1% lidocaine solution. At this point, a 25-gauge, 2.5-inch short bevel spinal needle was atraumatically introduced and advanced under fluoroscopic guidance into epidural space at the C6/7 translaminar space. Depth was confirmed on lateral view. Radiological data, including multiple fluoroscopic views of the cervical spine, reveal a spinal needle at the C6/7 translaminar space. Lateral views then show placement of the needle in the epidural space. Subsequent views show contrast material flowing superiorly and inferiorly in the epidural space. DSA fluoroscopy with live contrast injection, once again, confirmed no vascular or intrathecal uptake. At this point, using loss of resistance technique with saline and air, the epidural space was entered. Following negative aspiration, injection of approximately 1.5 cc of Isovue-200 with live fluoroscopy in the AP view confirmed epidural flow in the epidural space without vascular or intrathecal uptake observed. Subsequently, a test dose of 1 cc of 1% lidocaine solution was injected and patient was observed for two minutes without signs or symptoms of complications, including abdominal pain, shortness of breath, bilateral upper or lower extremity weakness, nausea and vomiting, prior to steroid injection. At this point, 2cc or 20mg of dexamethasone was then injected without incident. The patient tolerated the procedure well without signs or symptoms of complic ations prior to being transferred to the recovery area for further monitoring, The patient was then transferred to the recovery area where they were observed for an appropriate period of time after the injection. The patient reported a VAS score of 6 prior to the procedure and a post-procedure VAS of 0. POST OP INSTRUCTIONS The patient was provided a Pain Log to continue to record their response to the target-specific procedure prior to follow-up visit with the referring provider. Additionally, specific post-injection care instructions and a contact number to our office were provided if concerns arise regarding possible complications associated with the procedure are suspected.
== END 2024-12-08 10:38 | disposition home or self-care (01) ==
LOC: RAD 08:46
PROVIDERS: Family Provider Family Medicine; PCP Family Medicine; Referring Provider Physical Medicine & Rehabilitation; Visit Provider Physical Medicine & Rehabilitation
DX: M50.123 Cervical disc disorder at C6-C7 level with radiculopathy (principal); M48.02 Spinal stenosis, cervical region
CPT/HCPCS: 62321; 99152; J1100; J2250; J3490

== ENCOUNTER → 2024-12-15 12:59 | Outpatient (CLI) | payer MEDICARE, OTHER, SELFPAY ==
[2021-12-04 15:38] VITALS: BMI 21.3
[2024-12-15 20:24] LABS: TSH w/ Reflex to FT4 2.07 uIU/mL (0.47-4.68)
== END ==
PROVIDERS: Family Provider Family Medicine; PCP Family Medicine; Visit Provider Family Medicine
DX: E03.9 Hypothyroidism, unspecified (principal)
CPT/HCPCS: 84443

== ENCOUNTER 2025-04-11 14:01 | Outpatient (CLI) | payer MEDICARE, OTHER, SELFPAY ==
[2021-12-04 15:38] VITALS: BMI 21.3
[2025-04-11] VITALS (8 sets, daily range): BP systolic 127–152; BP diastolic 64–74; PULSE 63–68; RESP 12–18; TEMP 37.1; O2SAT 96–100
[2025-04-11] MEDS: MIDAZOLAM 2 MG/2 ML VIAL IV (14:57)
[2025-04-11] MEDS: BETAMETHASONE 30 MG/5 ML MDV 12 MG INJ (15:01)
--- NOTE | 2025-04-11 15:13 | P.PCN_ITS ---
Date/Time/Diagnoses Date of procedure: 04/11/25 Time of procedure: 15:13 Pre-procedure diagnosis: 1. FORAMINAL STENOSIS WITH LE SYMPTOMS Post-procedure diagnosis: same Procedure Notes Procedure: 1. FLUOROSCOPICALLY GUIDED CONTRAST CONTROLLED TRANSFORAMINAL EPIDURAL STEROID INJECTION - LEFT L4/5 Indications: Lena is referred by Dr. Strong for treatment of Foraminal Stenosis with Left LE Symptoms Physician: Helio Hunt Total Fluoroscopy time (seconds): 7 Total sedation minutes: 10 Complications: none Procedure in detail & Post-procedure care: FINDINGS Foraminal Nerve Root Compression secondary to disc disease and facet hypertrophy DESCRIPTION OF PROCEDURE Following review of allergy and review of potential side effects and complications, including, but not necessarily limited to, infection, allergic reaction, local tissue breakdown, stroke, temporary or permanent nerve injury, paralysis, and possible , the patient indicated that the patient understood and agreed to proceed. An informed consent document was signed by the patient, witnessed by a nurse, and placed in the patient's chart. Additionally, other treatment options including medications, modalities, and physical therapy were reviewed with the patient. After review of previous anaesthesic history and IV conscious sedation the patient was deemed safe to proceed with today?s procedure with IV conscious sedation as ASA class II designation. Safety time-out was performed to confirm patient ID, procedure to be performed and site of procedure. IV sedation was accomplished with a combination of 2mg of Versed administered by the RN after DO order, titrated to patient comfort during the course of the procedure while the patient remained responsive to all verbal commands In the prone position following sterile prep and drape of the lumbar region, the left L4/5 posterior neuroforamen was identified fluoroscopically. The skin was anesthetized via a 25-gauge 1.5-inch needle with 1% lidocaine solution. At this point, a 25-gauge 3.5-inch spinal needle was atraumatically introduced and advanced under fluoroscopic guidance through the posterior left L4/5 neuroforamen to approximately the anterior aspect of the canal. Depth was confirmed on lateral view. Following negative aspiration, injection of approximately 1.5 cc of Isovue 200 under live fluoroscopy in the AP view confirmed excellent flow along the nerve root, into the epidural space without vascular or intrathecal uptake observed Radiological data, including multiple fluoroscopic views of the lumbosacral spine, reveal a spinal needle at the left L4/5 posterior neuroforamen. Subsequent views show flow of contrast material flowing superiorly and inferiorly along the nerve root confirming epidural flow. Subsequently, a test dose of 1.5cc of 0.25% marcaine solution was administered and patient was observed for two minutes for signs or symptoms of complications, including abdominal pain, shortness of breath, bilateral upper or lower extremity weakness, nausea and vomiting, prior to steroid injection. At this point, a total of 3cc or 10mg of dexamethasone and 12mg of betamethasone was injected without incident. The procedure tolerated the procedure well without signs or symptoms of complications prior to transfer to the recovery area continued monitoring without incident. The patient was then transferred to the recovery area where they were observed for an appropriate time after the injection. The patient reported a VAS score of 7 prior to the procedure and a post- procedure VAS of 0. POST OP INSTRUCTIONS The patient was provided a Pain Log to continue to record their response to the target-specific procedure prior to follow-up visit with their referring physician. Additionally, specific post-injection care instructions and a contact number to our office were provided if concerns arise regarding possible complications associated with the procedure are suspected.
== END 2025-04-11 15:27 | disposition home or self-care (01) ==
PROVIDERS: PCP Family Medicine; Referring Provider Physical Medicine & Rehabilitation; Visit Provider Physical Medicine & Rehabilitation
DX: M48.061 Spinal stenosis, lumbar region without neurogenic claudication (principal); M51.16 Intervertebral disc disorders with radiculopathy, lumbar region; M47.26 Other spondylosis with radiculopathy, lumbar region
CPT/HCPCS: 64483; 99152; J0702; J1100; J2250

== ENCOUNTER → 2025-07-03 10:53 | Outpatient (CLI) | payer MEDICARE, OTHER, SELFPAY ==
[2025-06-23 11:34] VITALS: BMI 21.3
[2025-07-03 18:59] LABS: Add Manual Diff / Slide Review NO; Hematocrit 40.2 % (36-46); Hemoglobin 13.6 g/dL (12.0-16.0); Lymphocytes Absolute Auto 1300 /uL (1100-4500); Mean Corpuscular HGB Conc 33.9 % (30-36); Mean Corpuscular Hemoglobin 30.6 PG (26-34); Mean Corpuscular Volume 90.2 fL (80-100); Platelet Count 252 X10^3/uL (150-400)
[2025-07-03 19:04] LABS: Alanine Aminotransferase 26 IU/L (<35); Albumin 4.1 g/dL (3.5-5.0); Albumin Globulin Ratio 1.6 (1.0-2.8); Alkaline Phosphatase 98 U/L (38-126); Blood Urea Nitrogen 20 mg/dL (7-17); Calcium 9.2 mg/dL (8.4-10.2); Carbon Dioxide 28 mmol/L (22-32); Chloride 104 mmol/L (98-107); Cholesterol 200 mg/dL (140-199); Estimated Glomerular Filt Rate > 60 mL/min (>60); Globulin 2.6 g/dL (1.7-4.1); Glucose 94 mg/dL (70-99); HDL Cholesterol 75 mg/dL (40-60); HEMOLYSIS < 15 (0-50); Potassium 3.8 mmol/L (3.4-5.1); Sodium 139 mmol/L (137-145); Total Protein 6.7 g/dL (6.3-8.2); Triglycerides 87 mg/dL (35-150)
[2025-07-03 19:37] LABS: TSH w/ Reflex to FT4 2.09 uIU/mL (0.47-4.68)
== END ==
PROVIDERS: PCP Family Medicine; Referring Provider Family Medicine; Visit Provider Family Medicine
DX: R43.2 Parageusia (principal); I10 Essential (primary) hypertension; R43.0 Anosmia; K21.9 Gastro-esophageal reflux disease without esophagitis; E03.9 Hypothyroidism, unspecified; E04.1 Nontoxic single thyroid nodule
CPT/HCPCS: 80053; 80061; 84443; 85025